=== PATIENT | female | born 1970 | race Caucasian/White ===

== ENCOUNTER → 2017-08-16 16:06 | Outpatient (CLI) | payer OTHER, SELFPAY ==
[2017-08-16 17:51] LABS: Hematocrit 40.7 % (37-47); Hemoglobin 13.7 g/dl (12.0-15.0); Mean Corp Hgb Conc 33.7 g/gl (32-36); Mean Corpuscular Hgb 33.2 pg (27.0-32.0); Mean Corpuscular Volume 98.5 fL (81-99); Mean Platelet Vol. 11.2 fl (6.2-12.0); Platelet Count 299 K/mm3 (150-450); RBC Distribution Width CV 12.3 % (11.6-14.6); RBC Distribution Width SD 43.7 fl (35.1-43.9); Red Blood Count 4.13 M/mm3 (4.2-5.4); White Blood Count 8.4 K/mm3 (4.4-11.0)
[2017-08-16 17:54] LABS: Scan Indicated on CBC? Y/N NO
[2017-08-16 17:59] LABS: Anion Gap 7 (5-15); BUN 24 mg/dL (7-18); BUN/Creat Ratio 28.8 RATIO (10-20); Calcium,Total 8.9 mg/dL (8.5-10.1); Chloride 106 mmol/L (98-107); Creatinine, Serum 0.83 mg/dL (0.55-1.02); EST Glomerular Filtration Rate 78 mL/min (>60); Est Glom Filt Rate - Afr Amer 95 mL/min (>60); Glucose 84 mg/dL (74-106); Potassium 3.8 mmol/L (3.5-5.1); Sodium Level 139 mmol/L (136-145)
== END ==
PROVIDERS: Visit Provider Physician Assistant
DX: Z01.810 Encounter for preprocedural cardiovascular examination (principal); Z01.818 Encounter for other preprocedural examination
CPT/HCPCS: 36415; 80048; 85027

== ENCOUNTER 2018-01-22 13:13 | Observation (INO) | payer OTHER, SELFPAY ==
[2018-01-22 13:15] VITALS: BP 139/91; PULSE 74; RESP 16; TEMP 36.6; O2SAT 98; BMI 30.9
--- NOTE | 2018-01-22 13:39 | CT_ITS ---
STUDY: CT ABDOMEN AND PELVIS WITH CONTRAST REASON FOR EXAM: Female, 47 years old. Bloody stool. Abdominal pain. Recent bilateral knee replacement. RADIATION DOSAGE (If Supplied By Facility): CTDIvol = ( 15.68 ) mGy, DLP = ( 1068.98 ) mGycm TECHNIQUE: Transaxial images were obtained from the dome of the diaphragm to the symphysis pubis with oral contrast. 100 ml of Isovue 300 contrast was administered. Sagittal and coronal images were reconstructed. Individualized dose optimization techniques were used for this CT. COMPARISON: None. FINDINGS: The visualized lung bases are unremarkable. The visualized portions of the heart are within normal limits. Normal liver. Normal gallbladder and extrahepatic biliary system. Normal spleen. Normal pancreas. Normal bilateral adrenal glands. Normal right kidney. Normal left kidney. There is a small hiatal hernia. Normal small intestine. Mild diffuse thickening of the colonic wall. Colitis should be ruled out. There are multiple colonic diverticula consistent with diverticulosis. The appendix is visualized and appears normal. Normal abdominal aorta. Normal inferior vena cava. Normal retroperitoneum. Normal urinary bladder. Small benign-appearing bilateral inguinal lymph nodes. There is a small umbilical hernia containing fat. Normal osseous structures. CT/Abdomen/Pelvis WITH Contrast IMPRESSION: Findings suggestive of a colitis worse in the left hemicolon. Electronically Signed: Luisito Colon MD at 15:55 EDT Tel [phone], Service support ,
[2018-01-22 14:01] LABS: Absolute Lymphocyte Count 3.28 X10^3/ul (0.83-4.51); Basophil# 0.02 X10^3/uL; Basophil% 0.2 % (0-1); Eosinophil# 0.09 X10^3/uL; Eosinophils% 1.1 % (0-5); Hemoglobin 13.7 g/dl (12.0-15.0); Lymphocyte # 3.28 X10^3/ul (4.0); Lymphocyte % 40.5 % (19-41); Mean Corp Hgb Conc 33.4 g/gl (32-36); Mean Corpuscular Hgb 31.4 pg (27.0-32.0); Mean Platelet Vol. 10.2 fl (6.2-12.0); Monocyte# 0.73 X10^3/uL; Neutrophil # 3.96 X10^3/uL (2.7-7.7); Neutrophil % 49.1 % (47-70); Platelet Count 259 K/mm3 (150-450); RBC Distribution Width CV 12.5 % (11.6-14.6); RBC Distribution Width SD 42.9 fl (35.1-43.9); Red Blood Count 4.36 M/mm3 (4.2-5.4); White Blood Count 8.1 K/mm3 (4.4-11.0)
[2018-01-22 14:02] LABS: POSITIVE COUNT NO; POSITIVE DIFFERENTIAL NO; POSITIVE MORPHOLOGY NO
[2018-01-22] MEDS: 0.9% Normal Saline 1,000 ML 1000 ML IV (14:05)
[2018-01-22 14:18] LABS: Anion Gap 7 (5-15); BUN 9 mg/dL (7-18); BUN/Creat Ratio 10.2 RATIO (10-20); Calcium,Total 8.4 mg/dL (8.5-10.1); Chloride 106 mmol/L (98-107); Creatinine, Serum 0.88 mg/dL (0.55-1.02); EST Glomerular Filtration Rate 73 mL/min (>60); Est Glom Filt Rate - Afr Amer 89 mL/min (>60); Estimated Creatinine Clearance 86.38 ml/min; Glucose 84 mg/dL (74-106); Potassium 3.3 mmol/L (3.5-5.1); Sodium Level 143 mmol/L (136-145)
[2018-01-22 14:25] LABS: Lactic Acid 0.7 mmol/L (0.4-2.0)
[2018-01-22 15:49] VITALS: BP 130/82; PULSE 72; RESP 16; O2SAT 100
--- NOTE | 2018-01-22 16:28 | ED.VISSUMM ---
- ER Visit Summary Date of Service: 01/22/18 Chief Complaint: Diarrhea and rectal bleeding [] History of Present Illness: The patient is a 47 F [presents the emergency department with complaint of diarrhea that started 5 days ago. Patient states that the diarrhea subsequently turned bloody after 3 days and now was passing bloody mucus from her rectum. Patient's had intermittent abdominal pain and cramping. Patient denies recent travel or recent antibiotic usage. 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 Patient denies any fevers. There is no family history of ulcerative colitis or Crohn's disease. She denies any weight loss or night sweats.] Physical Examination: [HEENT-PERRLA, EOMI. Cranial nerves II through XII grossly intact. TMs clear. Mucous membranes moist. No adenopathy. Cardiovascular-regular rate and rhythm without murmur or ectopy Lungs-clear to auscultation, chest wall stable without crepitus or subcu emphysema Abdomen-normoactive bowel sounds, soft. Patient has tenderness over left lower quadrant with some guarding. There is no rebound, rigidity or perineal signs. Extremities-intact ?4, normal range of motion, normal pulses, atraumatic] Test Results: [CBC with differential obtain showed a white blood cell count of 8.1, hemoglobin 13.7, hematocrit 41, platelets 259. Chemistries unremarkable. Lactate was normal at 0.7. CT scan of the abdomen and pelvis showed findings consistent with colitis of the left side of the colon.] Emergency Department Course and Treatment: [I discussed results with patient and initially she did not want to be admitted to the hospital although that was my recommendation. I discussed case with Dr. Santi Tang who agreed to see the patient if she would agree to admission given the rectal bleeding and the abdominal pain he felt patient should be admitted and after expressing this to the patient she agreed to be admitted for further workup and evaluation of her diarrhea and rectal bleeding. Patient was unable to give a stool sample in the emergency department.] Treatment Plan: [Admit] Disposition: [Admit] Impression: [Colitis Rectal bleeding Diarrhea This note was generated with [employer] software. It may contain incorrect words, spelling, and punctuation that were not noted in review of the chart prior to signing ED Disposition - Plan for ED Patient: Chief Complaint: Lower Extremity Injury Referrals: Care Physician,No Primary [Primary Care Provider] -
[2018-01-22 16:43] VITALS: BP 141/80; PULSE 68; RESP 16; O2SAT 100
--- NOTE | 2018-01-22 16:48 | NURSING ---
MED SURG ACUTE COLITIS OF THE LEFT HEMICOLON STEPH
[2018-01-22 17:19] VITALS: BP 148/90; PULSE 63; RESP 16; TEMP 36.9; O2SAT 100; BMI 31.7
[2018-01-22 17:27] VITALS: BMI 31.7
[2018-01-22 17:45] LABS: AST(SGOT) 24 U/L (15-37); Alanine Aminotransfer ALT/SGPT 32 U/L (13-56); Albumin, Serum 2.8 g/dL (3.2-5.0); Alkaline Phosphatase 79 U/L (45-117); Bilirubin, Direct 0.08 mg/dL (0.00-0.30); Globulin 4.1 g/dL (2.2-4.2); Lipase 62 U/L (73-393); Protein, Total 6.9 g/dL (6.4-8.2)
--- NOTE | 2018-01-22 17:50 | PCM.HP.STD ---
<Paulie Hernandez - Last Filed: 01/22/18 17:50> Problem List (1) Colitis Status: Acute (2) Hypothyroidism Status: Chronic (3) Osteoarthritis Status: Chronic History of Present Illness Date of Admission: 01/22/18 Chief Complaint: diarrhea The patient is a 47 year old F with a hx of hyopthyroidism and osteoarthritis s/p BL knee repair this year who presents to the ER with intractable diarrhea. This began 5 days ago. She has had frequent loos stools with diffuse mild abdominal pain sometimes more than 10 per day. The first day she did throw up but the nausea has resolved. Three days ago she developed mucousy bright red blood in her stools. She has no hx of infectious colitis or C diff. 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 She has no fevers or chills. She has no difficulty eating. She currently has no belly pain. She is resting comfortably in bed. She has not had a BM since admission. [] Past Medical History Past Medical History (Chronic Problems): Chronic Problems Hypothyroidism (Chronic) Osteoarthritis (Chronic) Allergies No Known Allergies Allergy (Verified 01/22/18 17:19) Home Medications: Ambulatory Orders Medication Instructions Recorded Cetirizine HCl [Zyrtec] 10 mg PO DAILY 01/22/18 Levothyroxine [Synthroid] 137 mcg PO DAILY 01/22/18 Surgical History: total knee arthroplasty Psychiatric History: No pertinent psych hx DIRECTOR REGULATORY COMPLIANCE History: No pertinent DIRECTOR REGULATORY COMPLIANCE history Lives: Roommate Smoking Status: Never smoker Tobacco Use: Non-smoker Alcohol: None Drugs: None - *Family History Maternal History Items: No pertinent history Paternal History Items: No pertinent history Review of Systems Constitutional: Denies: Chills, Fever, Weight Change HEENT: Denies: Head Aches, Sinus Congestion, Sinus Drainage Cardiovascular: Denies: Chest Pain, Palpitations Respiratory: Denies: Cough, Shortness of breath at rest, Sputum production Gastrointestinal: Reports: Abdominal Pain, Diarrhea, Hematochezia. Denies: Nausea, Vomiting Genitourinary: Denies: Dysuria Musculoskeletal: Denies: Joint Pain, Joint Tenderness Skin: Denies: Rash, Wounds Neurological: Denies: Numbness, Tingling, Focal weakness Psychiatric: Denies: Anxiety, Depression, Homicidal Ideations, Suicidal Ideations Hematologic/ Lymphatic: Denies: Easy Bruising, Easy Bleeding VTE Information - Inpt Only VTE Present on Admission: No VTE Mechan Device Prophylaxis: None VTE Pharm Prophylaxis ordered?: No Reason prophylaxis not ordered:: Medical Contraindication Patient Problems: Active and Suspected Problems Colitis (Acute) - Physical Exam General: Alert, Oriented x3, Cooperative HEENT: Atraumatic, PERRLA, EOMI, Normocephalic Neck: Supple, No JVD, Negative Carotid Bruits Lungs: Clear to auscultation, Normal air movement Cardiovascular: Regular rate, No murmurs Abdomen: Bowel Sounds Present, Soft, Non Tender Extremities: No edema, Capillary Refill Less than 3 Seconds Skin: No rashes, No breakdown Musculoskeletal: No Tenderness to Palpation of Joints or Extremities Neurological: Cranial nerves II-XII grossly intact Psych/Mental Status: Normal Affect, Appropriate, Alert and oriented to time, place, person, mood and affect Vital Signs Temp Pulse Resp BP Pulse Ox 98.4 F 63 16 148/90 H 100 01/22/18 17:19 01/22/18 17:19 01/22/18 17:19 01/22/18 17:19 01/22/18 17:19 Oxygen Delivery Method Room Air Weight: 215 lb Body Mass Index (BMI) 31.7 Assessment/Plan All Active Problems Colitis (Acute) 1. Colitis - with bloody mucousy diarrhea. Hgb normal. CT with Left hemicolon colitis. Belly currently is benign on exam. suspected viral gastroenteritis. 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 Continue cipro flagyl. Check ova / parasites. Enteric panel. Replete fluids. Lipase neg. 2. hypokalemia 2/2 above - replete. 3. Hypothyroid continue synthroid. 4. Osteoarthritis - BL knee repair earlier this year DVT ppx: SCDs This patient was seen by Paulie Hernandez PA-C under the supervision of Doctor Renetta. <Susie Jackson - Last Filed: 01/22/18 18:09> History of Present Illness The patient is a 47 year old F [] Past Medical History Allergies No Known Allergies Allergy (Verified 01/22/18 17:19) - Physical Exam Vital Signs Temp Pulse Resp BP Pulse Ox 98.4 F 63 16 148/90 H 100 01/22/18 17:19 01/22/18 17:19 01/22/18 17:19 01/22/18 17:19 01/22/18 17:19 Oxygen Delivery Method Room Air Weight: 215 lb Body Mass Index (BMI) 31.7 Assessment/Plan Hospitalist note: I am seeing this patient in conjunction with Paulie Hernandez. I independently seen and examined the patient. History and physical, laboratory data and imaging studies reviewed and I agree with the above treatment plan. Patient was admitted for diarrhea, bloody stool and abdominal discomfort/pain, found to have acute colitis of the left hemicolon which is consistent with probably infectious colitis. Her vital signs are stable. Her routine blood work is remarkable for mild hypokalemia, otherwise normal. - Physical Exam General: Alert, Oriented x3, Cooperative, No apparent distress. HEENT: Atraumatic, PERRLA, EOMI. Neck: Supple, No JVD, Negative Carotid Bruits, Trachea Midline, Thyroid Normal. Lungs: Clear to auscultation, Normal air movement, No rhonchi, No wheeze, No rales. Cardiovascular: Regular rate, Regular Rhythm, Normal S1, Normal S2, PMI Normal. Abdomen: Bowel Sounds Present, Soft, Non Tender, Non-Distended, No Hepato-splenomegaly. Extremities: No clubbing, No cyanosis, No edema Skin: No rashes, No breakdown Neurological: Neuro grossly intact Vital Signs are stable. Assessment and plan: #1 acute colitis of the left hemicolon: Likely infectious colitis. CT scan abdomen and pelvis reviewed. Patient reported diarrhea with loose stool. Denies fever chills. Vital signs are stable. Routine blood work, #4 hypokalemia, otherwise normal. No fever, no leukocytosis. Plan: Admit to MedSur floor, keep on clear liquids, IV fluids, IV antibiotics, IV morphine as needed for pain, IV antiemetics, stool for C. difficile, stool for enteric pathogens, stool for omental signs. #2 chronic medical problems: Continue current medications as above. This note was generated with [employer] software. It may contain incorrect words, spelling, and punctuation that were not noted in checking the note before signing. Code Visit Inpatient E&M: 67709 Init Hosp L2
--- NOTE | 2018-01-22 17:56 | HP.PCM_ITS ---
<Paulie Hernandez - Last Filed: 01/22/18 17:50> Problem List (1) Colitis Status: Acute (2) Hypothyroidism Status: Chronic (3) Osteoarthritis Status: Chronic History of Present Illness Date of Admission: 01/22/18 Chief Complaint: diarrhea The patient is a 47 year old F with a hx of hyopthyroidism and osteoarthritis s/ p BL knee repair this year who presents to the ER with intractable diarrhea. This began 5 days ago. She has had frequent loos stools with diffuse mild abdominal pain sometimes more than 10 per day. The first day she did throw up but the nausea has resolved. Three days ago she developed mucousy bright red blood in her stools. She has no hx of infectious colitis or C diff. 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 She has no fevers or chills. She has no difficulty eating. She currently has no belly pain. She is resting comfortably in bed. She has not had a BM since admission. 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 Denies: Nausea, Vomiting Genitourinary: Denies: Dysuria Musculoskeletal: Denies: Joint Pain, Joint Tenderness Skin: Denies: Rash, Wounds Neurological: Denies: Numbness, Tingling, Focal weakness Psychiatric: Denies: Anxiety, Depression, Homicidal Ideations, Suicidal Ideations Hematologic/ Lymphatic: Denies: Easy Bruising, Easy Bleeding VTE Information - Inpt Only VTE Present on Admission: No VTE Mechan Device Prophylaxis: None VTE Pharm Prophylaxis ordered?: No Reason prophylaxis not ordered:: Medical Contraindication Patient Problems: Active and Suspected Problems Colitis (Acute) - Physical Exam General: Alert, Oriented x3, Cooperative HEENT: Atraumatic, PERRLA, EOMI, Normocephalic Neck: Supple, No JVD, Negative Carotid Bruits Lungs: Clear to auscultation, Normal air movement Cardiovascular: Regular rate, No murmurs Abdomen: Bowel Sounds Present, Soft, Non Tender Extremities: No edema, Capillary Refill Less than 3 Seconds Skin: No rashes, No breakdown Musculoskeletal: No Tenderness to Palpation of Joints or Extremities Neurological: Cranial nerves II-XII grossly intact Psych/Mental Status: Normal Affect, Appropriate, Alert and oriented to time, place, person, mood and affect Vital Signs Temp Pulse Resp BP Pulse Ox 98.4 F 63 16 148/90 H 100 01/22/18 17:19 01/22/18 17:19 01/22/18 17:19 01/22/18 17:19 01/22/18 17:19 Oxygen Delivery Method Room Air Weight: 215 lb Body Mass Index (BMI) 31.7 Assessment/Plan All Active Problems Colitis (Acute) 1. Colitis - with bloody mucousy diarrhea. Hgb normal. CT with Left hemicolon colitis. Belly currently is benign on exam. suspected viral gastroenteritis. 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 Continue cipro flagyl. Check ova / parasites. Enteric panel. Replete fluids. Lipase neg. 2. hypokalemia 2/2 above - replete. 3. Hypothyroid continue synthroid. 4. Osteoarthritis - BL knee repair earlier this year DVT ppx: SCDs This patient was seen by Paulie Hernandez PA-C under the supervision of Doctor Renetta. <Susie Jackson - Last Filed: 01/22/18 18:09> History of Present Illness The patient is a 47 year old F [] Past Medical History Allergies No Known Allergies Allergy (Verified 01/22/18 17:19) - Physical Exam Vital Signs Temp Pulse Resp BP Pulse Ox 98.4 F 63 16 148/90 H 100 01/22/18 17:19 01/22/18 17:19 01/22/18 17:19 01/22/18 17:19 01/22/18 17:19 Oxygen Delivery Method Room Air Weight: 215 lb Body Mass Index (BMI) 31.7 Assessment/Plan Hospitalist note: I am seeing this patient in conjunction with Paulie Hernandez. I independently seen and examined the patient. History and physical, laboratory data and imaging studies reviewed and I agree with the above treatment plan. Patient was admitted for diarrhea, bloody stool and abdominal discomfort/pain, found to have acute colitis of the left hemicolon which is consistent with probably infectious colitis. Her vital signs are stable. Her routine blood work is remarkable for mild hypokalemia, otherwise normal. - Physical Exam General: Alert, Oriented x3, Cooperative, No apparent distress. HEENT: Atraumatic, PERRLA, EOMI. Neck: Supple, No JVD, Negative Carotid Bruits, Trachea Midline, Thyroid Normal. Lungs: Clear to auscultation, Normal air movement, No rhonchi, No wheeze, No rales. Cardiovascular: Regular rate, Regular Rhythm, Normal S1, Normal S2, PMI Normal. Abdomen: Bowel Sounds Present, Soft, Non Tender, Non-Distended, No Hepato- splenomegaly. Extremities: No clubbing, No cyanosis, No edema Skin: No rashes, No breakdown Neurological: Neuro grossly intact Vital Signs are stable. Assessment and plan: #1 acute colitis of the left hemicolon: Likely infectious colitis. CT scan abdomen and pelvis reviewed. Patient reported diarrhea with loose stool. Denies fever chills. Vital signs are stable. Routine blood work, #4 hypokalemia, otherwise normal. No fever, no leukocytosis. Plan: Admit to MedSur floor, keep on clear liquids, IV fluids, IV antibiotics, IV morphine as needed for pain, IV antiemetics, stool for C. difficile, stool for enteric pathogens, stool for omental signs. #2 chronic medical problems: Continue current medications as above. This note was generated with [employer] software. It may contain incorrect words, spelling, and punctuation that were not noted in checking the note before signing. Code Visit Inpatient E&M: 36329 Init Hosp L2
[2018-01-22 21:00] VITALS: BP 134/80; PULSE 69; RESP 16; TEMP 36.6; O2SAT 99
[2018-01-22] MEDS: Ciprofloxacin 200 MG/100 ML BAG 100 MG IV (21:03)
[2018-01-23 03:00] VITALS: BP 142/80; PULSE 79; RESP 18; TEMP 36.4; O2SAT 96
[2018-01-23] MEDS: Levothyroxine 137 MCG Tablet PO (06:05)
[2018-01-23 06:41] LABS: Absolute Lymphocyte Count 2.85 X10^3/ul (0.83-4.51); Absolute Neutrophil Count 3.1 X10^3/uL (2.0-7.7); Basophil# 0.03 X10^3/uL; Basophil% 0.4 % (0-1); Eosinophil# 0.15 X10^3/uL; Eosinophils% 2.2 % (0-5); Hematocrit 37.6 % (37-47); Hemoglobin 13.1 g/dl (12.0-15.0); Lymphocyte # 2.85 X10^3/ul (4.0); Lymphocyte % 41.1 % (19-41); Mean Corp Hgb Conc 34.8 g/gl (32-36); Mean Corpuscular Hgb 32.5 pg (27.0-32.0); Mean Corpuscular Volume 93.3 fL (81-99); Mean Platelet Vol. 10.4 fl (6.2-12.0); Monocyte# 0.75 X10^3/uL; Monocyte% 10.8 % (0-10); Neutrophil # 3.14 X10^3/uL (2.7-7.7); Neutrophil % 45.4 % (47-70); Platelet Count 255 K/mm3 (150-450); RBC Distribution Width CV 12.3 % (11.6-14.6); RBC Distribution Width SD 41.2 fl (35.1-43.9); Red Blood Count 4.03 M/mm3 (4.2-5.4); White Blood Count 6.9 K/mm3 (4.4-11.0)
[2018-01-23 06:42] LABS: POSITIVE COUNT NO; POSITIVE DIFFERENTIAL NO; POSITIVE MORPHOLOGY NO
[2018-01-23 06:59] LABS: Anion Gap 9 (5-15); BUN 5 mg/dL (7-18); Chloride 110 mmol/L (98-107); Creatinine, Serum 0.72 mg/dL (0.55-1.02); EST Glomerular Filtration Rate 93 mL/min (>60); Est Glom Filt Rate - Afr Amer 113 mL/min (>60); Estimated Creatinine Clearance 102.03 ml/min; Glucose 84 mg/dL (74-106); Potassium 3.5 mmol/L (3.5-5.1); Sodium Level 144 mmol/L (136-145)
[2018-01-23] MEDS: Acetaminophen 325 MG Tablet 650 MG PO (07:19)
[2018-01-23 10:08] VITALS: BP 123/81; PULSE 58; RESP 18; TEMP 36.6; O2SAT 98
[2018-01-23] MEDS: Ciprofloxacin 200 MG/100 ML BAG 100 MG IV (10:09)
[2018-01-23] MEDS: Loratadine 10 MG Tablet PO (10:14)
--- NOTE | 2018-01-23 11:36 | DCINST_ITS ---
- Discharge Diagnoses Current Active Problems: Current Active and Chronic Problems Colitis (Acute) Hypothyroidism (Chronic) Osteoarthritis (Chronic) You will use the following diet at home:: No restrictions Your food should be the consistency of: Regular Your liquids should be the consistency of: Regular/Thin Discharge Activity: Return to Normal Activity Allergies/Adverse Reactions: Allergies No Known Allergies Allergy (Verified 01/22/18 17:19) Medications to take at Discharge Cetirizine HCl [Zyrtec] 10 mg PO DAILY 01/22/18 Levothyroxine [Synthroid] 137 mcg PO DAILY 01/22/18 Ciprofloxacin [Cipro] 500 mg PO BID #10 tab 01/23/18 Metronidazole [Flagyl] 500 mg PO TID #15 tab 01/23/18 The following prescriptions were given: Ciprofloxacin [Cipro] 500 mg PO BID #10 tab Metronidazole [Flagyl] 500 mg PO TID #15 tab Primary Care Physician: Care Physician,No Primary [Primary Care Provider] - Please follow up with your Primary Care Physician in: 1-2 weeks Test Results: Test results from this visit will be discussed in further detail at your follow- up appointment, if applicable. Proposed Discharge Date: 01/23/18
--- NOTE | 2018-01-23 13:23 | DS.PCM_ITS ---
<Paulie Hernandez - Last Filed: 01/23/18 13:18> Discharge Date and Diagnosis Date of Admission: 01/22/18 Date of Discharge: 01/23/18 - Primary Discharge Diagnosis Active and Suspected Problems Colitis (Acute) - suspect viral gastroenteritis BRBPR 2/2 above Hypokalemia 2/2 diarrhea Hypothyroidism - Secondary Discharge Diagnosis Chronic Problems Hypothyroidism (Chronic) Osteoarthritis (Chronic) Hospital Course and Treatment Imaging Results: CT/Abdomen/Pelvis WITH Contrast IMPRESSION: Findings suggestive of a colitis worse in the left hemicolon. Operations: None Procedures: None Summary of Care Provided: Physical exam on day of discharge: General: Resting comfortably NAD Psych: A/Ox3 normal affect HEENT: PEARRLA AT NC Neck: Supple NT CV: RRR no m/t/r/g/h Resp: CTA Abd: [id number] Soft NT no guarding or rigidity Ext: DP2+= no edema Skin: W/D normal turgor Lymph/Heme: No active bleeding or adenopathy Neuro: CN2-12 intact Hospital course: The patient is a 47 year old F with a hx of hypothyroidism who presented to the ER with 5 days of diarrhea with boody mucus the last three days. She had tried taking cipro and flagyl x1 day with no relief. She was having at least 10 rounds of diarrhea per day. Initially she had some vomiting, but did not have any further nausea. In the ER CT showed colitis. Hemoglobin was normal, potassium was low. She was admitted to the medical surgical floor on IV Cipro and Flagyl and IV fluids with potassium replacement. She did well overnight. Her diet was advanced to full and she had no nausea or vomiting. Her stools decreased in frequency and she had no further blood noted. She was transitioned to oral Flagyl and Cipro for 5 more days and discharged home in stable condition. Enteric panel was negative, C. difficile was negative, ova and parasites test is pending will not be available for 5-7 days. She will need to follow-up with her PCP in 1-2 weeks. This patient was seen by Paulie Hernandez PA-C under the supervision of Doctor Jackson. [] Discharge Diet: No Restrictions Discharge Activity: Return to Normal Activity Home Medications: Medications to take at Discharge Cetirizine HCl [Zyrtec] 10 mg PO DAILY 01/22/18 Levothyroxine [Synthroid] 137 mcg PO DAILY 01/22/18 Ciprofloxacin [Cipro] 500 mg PO BID #10 tab 01/23/18 Metronidazole [Flagyl] 500 mg PO TID #15 tab 01/23/18 Following Prescrptions Were Given to Patient: Ciprofloxacin [Cipro] 500 mg PO BID #10 tab Metronidazole [Flagyl] 500 mg PO TID #15 tab Primary Care Physician: Care Physician,No Primary [Primary Care Provider] - Please follow up with your Primary Care Physician in: 1-2 weeks Disposition: Home Minutes spent on discharge:: 35 Patient Condition:: Stable Medical Necessity - Tobacco Use Smoking Status: Never smoker Tobacco Use: Non-smoker Meaningful Use Info Meaningful Use Diagnoses (Choose all that apply): None applicable <[email or web address] Christina - Last Filed: 01/23/18 14:13> Discharge Date and Diagnosis - Primary Discharge Diagnosis Acute colitis of the left hemicolon, probably viral in etiology. - Secondary Discharge Diagnosis Chronic Problems Hypothyroidism (Chronic) Osteoarthritis (Chronic) Hospital Course and Treatment Summary of Care Provided: Hospitalist note: Discharge summary above reviewed and I agree with above discharge and treatment plan. Patient was admitted for diarrhea, bloody stool and abdominal pain, found to have acute colitis of the left hemicolon on CT scan abdomen and pelvis. Her routine blood work was unremarkable except for mild hypokalemia, no leukocytosis. She was treated with IV fluids, IV antibiotics, IV pain medications and IV antiemetics. On the day of discharge, patient symptoms improved, has no more abdominal pain, no more bloody stool. She remains afebrile. Repeat blood work again today was unremarkable. Stool for C. difficile was negative. Stool for enteric pathogens were negative. Lactic acid was normal. This acute colitis attributed to infectious colitis likely viral in etiology. Patient discharged home in a stable medical condition, discharged on ciprofloxacin and Flagyl for 7 days of treatment, recommended from PCP in 1-2 weeks. - Physical Exam General: Alert, Oriented x3, Cooperative, No apparent distress. HEENT: Atraumatic, PERRLA, EOMI. Neck: Supple, No JVD, Negative Carotid Bruits, Trachea Midline, Thyroid Normal. Lungs: Clear to auscultation, Normal air movement, No rhonchi, No wheeze, No rales. Cardiovascular: Regular rate, Regular Rhythm, Normal S1, Normal S2, PMI Normal. Abdomen: Bowel Sounds Present, Soft, Non Tender, Non-Distended, No Hepato- splenomegaly. Extremities: No clubbing, No cyanosis, No edema Skin: No rashes, No breakdown Neurological: Neuro grossly intact Vital Signs are stable. This note was generated with [employer] dictation software. It may contain incorrect words, spelling, and punctuation that were not noted in checking the note before signing. Minutes spent on discharge:: 25 Patient Condition:: Stable Meaningful Use Info Meaningful Use Diagnoses (Choose all that apply): None applicable Code Visit OBSV E&M: 53662 Observation care discharge
== END 2018-01-23 13:28 | disposition home or self-care (01) ==
LOC: ED 14:06 → MS3 01-23 00:31
PROVIDERS: Admitting Provider Hospitalist; Emergency Provider Emergency Medicine; Visit Provider Hospitalist
DX: K52.9 Noninfective gastroenteritis and colitis, unspecified (principal); E03.9 Hypothyroidism, unspecified; E87.6 Hypokalemia; K62.5 Hemorrhage of anus and rectum; M19.90 Unspecified osteoarthritis, unspecified site; Z79.899 Other long term (current) drug therapy
CPT/HCPCS: 36415; 74177; 80048; 80076; 83605; 83690; 85025; 87177; 87209; 87493; 87506; 96361; 96365; 96366; 96367; 99218; 99283; J7030; Q9967; G0378; J0744

== ENCOUNTER → 2018-05-28 16:13 | Outpatient (CLI) | payer OTHER, SELFPAY ==
[2018-05-28 17:46] LABS: Absolute Lymphocyte Count 3.72 X10^3/ul (0.83-4.51); Absolute Neutrophil Count 5.7 X10^3/uL (2.0-7.7); Basophil# 0.02 X10^3/uL; Basophil% 0.2 % (0-1); Eosinophil# 0.08 X10^3/uL; Eosinophils% 0.8 % (0-5); Hematocrit 41.2 % (37-47); Lymphocyte # 3.72 X10^3/ul (4.0); Lymphocyte % 35.9 % (19-41); Mean Corpuscular Hgb 32.9 pg (27.0-32.0); Mean Corpuscular Volume 96.7 fL (81-99); Mean Platelet Vol. 11.2 fl (6.2-12.0); Monocyte# 0.83 X10^3/uL; Neutrophil % 54.9 % (47-70); Platelet Count 292 K/mm3 (150-450); RBC Distribution Width CV 12.2 % (11.6-14.6); RBC Distribution Width SD 41.9 fl (35.1-43.9); Red Blood Count 4.26 M/mm3 (4.2-5.4); White Blood Count 10.4 K/mm3 (4.4-11.0)
[2018-05-28 17:53] LABS: POSITIVE COUNT NO; POSITIVE DIFFERENTIAL NO; POSITIVE MORPHOLOGY NO
[2018-05-28 18:15] LABS: Erythrocyte Sedimentation Rate 10 mm/hr (0-20)
== END ==
PROVIDERS: Family Provider Nurse Practitioner; PCP Nurse Practitioner; Referring Provider Physician Assistant; Visit Provider Physician Assistant
DX: Z96.651 Presence of right artificial knee joint (principal)
CPT/HCPCS: 36415; 85025; 85652; 86140

== ENCOUNTER → 2018-05-30 21:29 | Outpatient (CLI) | payer OTHER, SELFPAY ==
[2018-05-30 22:00] LABS: Thyroid Stim Hormone (TSH) 3.71 uIU/mL (0.358-3.74)
== END ==
PROVIDERS: Family Provider Nurse Practitioner; PCP Nurse Practitioner; Referring Provider Nurse Practitioner; Visit Provider Nurse Practitioner
DX: E03.9 Hypothyroidism, unspecified (principal)
CPT/HCPCS: 84443

== ENCOUNTER → 2018-07-11 21:14 | Outpatient (CLI) | payer OTHER, SELFPAY ==
[2018-07-11 21:51] LABS: Thyroid Stim Hormone (TSH) 3.89 uIU/mL (0.358-3.74)
--- OUTSIDE RECORDS SUMMARY | 2018-09-15 12:55 | XMS RPT_ITS ---
:1970 Author Organization OHIP Support Name Relationship Address Phone [facility] Unavailable [address] + [place] [address] FLANNERY, ANNIA Unavailable [address] + [place] [address] [facility] Unavailable [address] + [place] [address] FLANNERY, ANNIA Unavailable [address] + [place] [address] [facility] Unavailable [address] + [place] [address] FLANNERY, ANNIA Unavailable [address] + [facility] [place] [address] [facility] Unavailable [address] + [place] [address] FLANNERY, ANNIA Unavailable [address] + [place] [address] [facility] Unavailable [address] + [place] [address] FLANNERY, ANNIA Unavailable [address] + [place] [address] [facility] Unavailable [address] + [place] [address] FLANNERY, ANNIA Unavailable [address] + [facility] [place] [address] [facility] Unavailable [address] + [place] [address] FLANNERY, ANNIA Unavailable [address] + [facility] [place] [address] Care Team Providers Name Role Phone Allison Kulkarni BRICK STACKER-C Attending Unavailable Allison Kulkarni BRICK STACKER-C Primary Care Unavailable Allison Kulkarni BRICK STACKER-C Referring Unavailable Lopez Toscano Attending Unavailable Lopez Toscano Referring Unavailable Primay Care Physicia, No Primary Care Unavailable Primay Care Physicia, No Primary Care Unavailable Ashelfah, Ghasem Admitting Unavailable Ashelfah, Ghasem Attending Unavailable Ashelfah, Ghasem Admitting Unavailable Primay Care Physicia, No Primary Care Unavailable Ashelfah, Ghasem Consulting Unavailable Ashelfah, Ghasem Attending Unavailable Ashelfah, Ghasem Admitting Unavailable Primay Care Physicia, No Primary Care Unavailable Ashelfah, Ghasem Consulting Unavailable Ashelfah, Ghasem Attending Unavailable Lopez Toscano Attending Unavailable Lopez Toscano Referring Unavailable Allison Kulkarni BRICK STACKER-C Primary Care Unavailable Allison Kulkarni BRICK STACKER-C Attending Unavailable Kulkarni, Allison BRICK STACKER-C Primary Care Unavailable Allison Kulkarni BRICK STACKER-C Referring Unavailable COLAANTONIO Attending Unavailable COLAVIRGINIA Attending Unavailable [facility] Referring Unavailable GHOUBRIAL, ALEISHA Primary Care Unavailable PROBLEMS PROBLEMS DATE TYPE CONDITION / CODE ATTENDING STATUS SOURCE 07/12/2018 Unknown E03.9 - Kulkarni, Active [place] Hypothyroidism, Allison BRICK STACKER-C Community unspecified / Hospital E03.9(ICD-10) Repository 03/27/2018 Active Encounter for ANTONIO FLOWERS Active [place] gynecological [facility] Other examination [place] (general) (routine) Repository without abnormal findings / Z01.419(ICD-10) 01/17/2017 Active Encounter for COLANTONIO Sharpe Active [place] initial prescription [facility] Other of vaginal ring [place] hormonal Repository contraceptive / Z30.015(ICD-10) 01/17/2017 Active Encounter for COLANTONIO Sharpe Active [place] screening mammogram [facility] Other for malignant [place] neoplasm of breast / Repository Z12.31(ICD-10) 01/17/2017 Active Encounter for COLANTONIO Sharpe Active [place] screening for [facility] Other malignant neoplasm [place] of cervix / Repository Z12.4(ICD-10) 03/27/2018 Admitting Unknown / VIRGINIA FLOWERS Active [place] [facility] diagnosis [facility](Unknown[facility] Repository 01/30/2018 Unknown K62.5 - Hemorrhage Ashelfah, Active [place] of anus and rectum / Ghasem Community K62.5(ICD-10) Hospital Repository 08/16/2017 Unknown Z01.818 - Encounter Lopez Toscano Active [place] for other [facility] preprocedural Hospital examination / Repository Z01.818(ICD-10) 08/16/2017 Unknown Z01.810 - Encounter Lopez Toscano Active [place] for preprocedural [facility] cardiovascular [facility] examination / Repository Z01.810(ICD-10) PROCEDURES PROCEDURES No Procedure Records FoundRESULTS RESULTS OFFICE VISIT Observed: 07/11/2018 Status: F Source: [place] 8:43 PM [facility] REPOSITORY [facility] [address] [place] [address] OFFICE VISIT Date of Service: 07/11/18 MR#: [id number] Acct: [id number] Name: HENRIQUE TURPIN Wale Rep #: [id number] : 1970 Provider: CYDNEY Kulkarni Age/Sex: 47/F Location: [facility] Status: Signed Intake Intake Visit Reasons: TSH Chief Complaint: Colitis Allergies No Known Allergies Allergy (Verified 01/22/18 17:19) Medications Cetirizine HCl [Zyrtec] 10 mg PO DAILY 01/22/18 [History Confirmed 01/22/18] Ciprofloxacin [Cipro] 500 mg PO BID #10 tab 01/23/18 [Rx] Metronidazole [Flagyl] 500 mg PO TID #15 tab 01/23/18 [Rx] levothyroxine 150 mcg tablet 150 mcg PO DAILY #30 tab 06/01/18 [Rx] Assessment AND Plan Orders Orders: 07/11/182042 <Electronically signed by Allison LÓPEZ> Date Allison LÓPEZ CC: THYROID STIM HORMONE Collected: 07/11/2018 Status: F Source: [place] (TSH) 4:15 PM [facility] REPOSITORY TYPE CODE TESTS RESULT OUT OF RANGE REFERENCE UNITS LAB L501.9520 0.358-3.74 uIU/mL High TSH 3.89 Performed By: #### L501.9520 #### [facility] [place] [place], [address] OFFICE VISIT Observed: 05/30/2018 Status: F Source: [place] 8:46 PM [facility] REPOSITORY After Hours [facility] Medicine [address] [place] [address] OFFICE VISIT Date of Service: 05/30/18 MR#: [id number] Acct: [id number] Name: HENRIQUE TURPIN Wale Rep #: [id number] : 1970 Provider: CYDNEY Kulkarni Age/Sex: 47/F Location: [facility] Status: Signed Intake Intake Visit Reasons: TSH Allergies No Known Allergies Allergy (Verified 01/22/18 17:19) Medications Cetirizine HCl [Zyrtec] 10 mg PO DAILY 01/22/18 [History Confirmed 01/22/18] Levothyroxine [Synthroid] 137 mcg PO DAILY 01/22/18 [History Confirmed 01/22/18] Ciprofloxacin [Cipro] 500 mg PO BID #10 tab 01/23/18 [Rx] Metronidazole [Flagyl] 500 mg PO TID #15 tab 01/23/18 [Rx] PFSH Social History Smoking Status: Never smoker HPI HPI (General) HPI HPI: HENRIQUE TURPIN, is a 47 F who presents to the office today for Assessment AND Plan Orders Orders: Coding Level of Care Code No Charge 05/30/182045 <Electronically signed by Allison LÓPEZ> Date Allison LÓPEZ CC: OFFICE VISIT Observed: 05/30/2018 Status: F Source: [place] 8:44 PM [facility] REPOSITORY After Hours [facility] [address] [place] [address] OFFICE VISIT Date of Service: 05/30/18 MR#: [id number] Acct: [id number] Name: AMANDA TURPINJESIKA Echevarria Rep #: [id number] : 1970 Provider: CYDNEY Kulkarni Age/Sex: 47/F Location: F Status: Signed Intake Intake Visit Reasons: TSH Allergies No Known Allergies Allergy (Verified 01/22/18 17:19) Medications Cetirizine HCl [Zyrtec] 10 mg PO DAILY 01/22/18 [History Confirmed 01/22/18] Levothyroxine [Synthroid] 137 mcg PO DAILY 01/22/18 [History Confirmed 01/22/18] Ciprofloxacin [Cipro] 500 mg PO BID #10 tab 01/23/18 [Rx] Metronidazole [Flagyl] 500 mg PO TID #15 tab 01/23/18 [Rx] PFSH Social History Smoking Status: Never smoker HPI HPI (General) HPI HPI: HENRIQUE TURPIN, is a 47 F who presents to the office today for Coding Level of Care Code No Charge 05/30/182043 <Electronically signed by Allison LÓPEZ> Date Allison LÓPEZ CC: THYROID STIM HORMONE Collected: 05/30/2018 Status: F Source: [place] (TSH) 4:10 PM [facility] REPOSITORY TYPE CODE TESTS RESULT OUT OF RANGE REFERENCE UNITS LAB L501.9520 0.358-3.74 uIU/mL Normal TSH 3.71 Performed By: #### L501.9520 #### [facility] [place], [address] CBC W/DIFF, AUTOMATED Collected: 05/28/2018 Status: F Source: [place] 4:22 PM [facility] REPOSITORY TYPE CODE TESTS RESULT OUT OF RANGE REFERENCE UNITS LAB L100.1000 4.4-11.0 K/mm3 Normal WBC 10.4 LAB L100.1200 4.2-5.4 M/mm3 Normal RBC 4.26 LAB L100.1300 12.0-15.0 g/dl Normal HGB 14.0 LAB L100.1400 37-47 % Normal HCT 41.2 LAB L100.1500 81-99 fL Normal MCV 96.7 LAB L100.1600 27.0-32.0 pg High MCH 32.9 LAB L100.1700 32-36 g/gl Normal MCHC 34.0 LAB L100.1810 11.6-14.6 % Normal RDW CV 12.2 LAB L100.1820 35.1-43.9 fl Normal RDW SD 41.9 LAB L100.1900 150-450 K/mm3 Normal PLT 292 LAB L100.2000 6.2-12.0 fl Normal MPV 11.2 LAB L100.2100 47-70 % Normal NEUT% 54.9 LAB L100.2200 19-41 % Normal LY% 35.9 LAB L100.2300 0-10 % Normal MONO% 8.0 LAB L100.2400 0-5 % Normal EO% 0.8 LAB L100.2500 0-1 % Normal BASO% 0.2 LAB L100.2550 0.0-0.9 % Normal IM GRAN % 0.200 Result Comment: IG% - Immature Granulocytes (promyelocytes, myelocytes and metamyelocytes) > 1% indicates that a LEFT SHIFT is Present. LAB L100.2620 2.0-7.7 X10 3/uL Normal Absolute Neut 5.7 LAB L100.2720 0.83-4.51 X10 3/ul Normal Absolute Lymph 3.72 Performed By: #### L100.0100, L101.9900 #### [facility] [address] [place], [place], [id number] ERYTHROCYTE SED RATE Collected: 05/28/2018 Status: F Source: [place] 4:22 PM [facility] REPOSITORY TYPE CODE TESTS RESULT OUT OF RANGE REFERENCE UNITS LAB L102.0000 0-20 mm/hr Normal SED RATE 10 Performed By: #### L100.0100, L101.9900 #### [facility] [address]. [place], [place], [address] CRP Collected: 05/28/2018 Status: F Source: [place] 4:22 PM [facility] REPOSITORY TYPE CODE TESTS RESULT OUT OF RANGE REFERENCE UNITS LAB L501.6710 0.0-3.0 mg/L High 14.40 C-REACTIVE PROT Result Comment: C-Reactive Protein (CRP) provides useful information for the diagnosis, therapy and monitoring of inflammatory processes and associated diseases. For the evaluation of Relative Risk for Cardiovascular Disease, a High Sensitivity CRP (HSCRP) should be ordered. Performed By: #### L501.6710 #### [facility] [address] [place] [place], [address] PROGRESS Observed: 03/27/2018 Status: COMPLETED Source: [place] 9:18 AM CLINIC OTHER CAMPUS REPOSITORY HNO ID: [id number] Author: Antonio Flowers Service: (none) Author Type: Physician Type: Progress Notes Filed: 03/27/2018 9:40 AM Note Text: Henrique Pace is an 47 year old woman who presents for annual exam. LMP: Patient's last menstrual period was 02/27/2018 (approximate). Dysmenorrhea:none. Cyclic symptoms include none. Sexually active? YES Contraception: Nuvaring Sexual dysfunction: none PAST MEDICAL HISTORY Diagnosis Date - Contraception management - Family planning, lunelle surveillance - Secondary hypothyroidism PAST SURGICAL HISTORY Procedure Laterality Date - PAP SMEAR 05/24/2010 - TOTAL KNEE REPLACEMENT Left 2018 - TOTAL KNEE REPLACEMENT Right 2018 FAMILY HISTORY Problem Relation Age of Onset - Thyroid Mother - Diabetes Sister Social History Marital status: Spouse name: Years of education: Number of children: Social History Main Topics Smoking status: Former Smoker Packs/day: 0.00 Years: 0.00 Smokeless tobacco: Never Used Alcohol use: Yes Comment: A FEW DRINKS A MONTH Drug use: No Sexual activity: Yes MEDICATIONS: cetirizine (ZYRTEC) 10 mg tablet DAILY levothyroxine (SYNTHROID) 137 mcg tablet DAILY NUVARING 0.12-0.015 mg/24 hr vaginal ring INSERT 1 RING INTRAVAGINALLY AND LEAVE IN PLACE FOR 3 WEEKS, THEN REMOVE FOR 1 WEEK LEVOTHYROXINE SODIUM (LEVOTHYROXINE ORAL) Take 50 mcg by mouth once daily. TRAMADOL HCL (TRAMADOL ORAL) Take 50 mg by mouth once daily. ALLERGIES:Patient has no known allergies. Hormone replacement: never Hx of abnormal pap? No Regular self-breast exam? Yes History of abnormal mammogram? No REVIEW OF SYSTEMS: GENERAL:Denies fever, chills, night sweats, or changes in weight. DERMATOLOGIC: Denies any new skin conditions, rashes or changing moles. EYES: Denies recent visual changes. ENT: Denies hearing loss or tinnitus. RESPIRATORY: Denies any cough, dyspnea, or wheezing. CARDIOVASCULAR:Denies any chest pain with exertion or at rest, palpitations, syncope, shortness of breath or edema. BREASTS: Denies any breast lumps, tenderness, dimpling, skin changes, or nipple discharge. GASTROINTESTINAL: Denies any nausea, vomiting, or abdominal pain. , Denies heartburn., Denies any change in bowel habits. GENITOURINARY: Denies urinary frequency, dysuria, hematuria, nocturia, incontinence. and Denies abnormal vaginal discharge or bleeding, pelvic pain, menstrual or menopausal problems FISHERIES MANAGEMENT BIOLOGIST: Denies any abnormal vaginal discharge, irregular bleeding, vaginal dryness, dypareunia, or change in libido MUSCULOSKELETAL: Denies any joint swelling, crepitus, or loss of range of motion., Denies back pain., Denies joint pain. NEURO:Denies any headaches, tremors, dizziness, vertigo, memory loss, confusion., Denies weakness, numbness or tingling. PSYCHIATRIC: Denies any anxiety or depression. HEMATOLOGIC/LYMPHATIC/IMMUNOLOGIC: Denies anemia, bruising, bleeding abnormalities. ENDOCRINE: Denies any heat or cold intolerance, polyuria, polyphasia or polydipsia. OBJECTIVE: GENERAL APPEARANCE: cooperative, in no acute distress, alert SKIN:Color normal, Vascularity normal, No evidence of bleeding or bruising, No lesions noted, No edema, Temperature normal, Texture normal, Mobility and turgor normal, Nails normal without clubbing NECK: Supple, no adenopathy; thyroid symmetric, normal size, no bruits BREASTS: breasts symmetric, no dominant or suspicious mass, no skin or nipple changes, no axillary adenopathy HEART:Normal PMI, Regular rate and rhythm, Normal heart sounds, S1 and S2 and No murmurs. ABDOMEN: soft, non-tender, no masses, no hepatosplenomegaly and no lymphadenopathy EXTREMITIES: No skin discoloration, No edema and Normal pulses bilaterally. PELVIC EXAM : External genitalia, cervix, and vagina normal., Bimanual exam normal. RECTAL EXAM:deferred PATIENT EDUCATION:Women's Health counselling done. ASSESSMENT/PLAN: 1. Routine cervical smear - ICD9: V76.2, ICD10: Z12.4 (primary diagnosis) - Completed pelvic and breast exam - Encouraged monthly BSE - Follow up for annual exam in one year. - PAP, CYTO FISHERIES MANAGEMENT BIOLOGIST 2. Encounter for screening mammogram for malignant neoplasm of breast - ICD9: V76.12, ICD10: Z12.31 - Completed pelvic and breast exam - Encouraged monthly BSE - Follow up for annual exam in one year. - MAMMOGRAM DIGITAL SCREENING BILAT (AG,AV) 3. Encounter for initial prescription of vaginal ring hormonal contraceptive - ICD9: V25.02, ICD10: Z30.015 - Rx Nuvaring 4. Visit for pelvic exam - ICD9: V72.31, ICD10: Z01.419 - Completed pelvic and breast exam - Encouraged monthly BSE - Follow up for annual exam in one year. Antonio Flowers MD CNOV Observed: 03/27/2018 Status: COMPLETED Source: [place] 9:00 AM CLINIC OTHER CAMPUS REPOSITORY Office Visit (AGGYNBMG) HENRIQUE TURPIN ([id number]) 1970 F Date Time Provider Department 03/27/18 9:00 AM ANTONIO FLOWERS AGGYNBMG During your visit today, we recorded the following information about you: Blood pressure Weight Height Last Period 130/86 99.8 kg 1.778 m 02/27/18 Antonio Flowers MD 03/27/2018 9:40 AM Signed Henrique Echevarria Sanjeev is an 47 year old woman who presents for annual exam. LMP: Patient's last menstrual period was 02/27/2018 (approximate). Dysmenorrhea:none. Cyclic symptoms include none. Sexually active? YES Contraception: Nuvaring Sexual dysfunction: none PAST MEDICAL HISTORY Diagnosis Date - Contraception management - Family planning, lunelle surveillance - Secondary hypothyroidism PAST SURGICAL HISTORY Procedure Laterality Date - PAP SMEAR 05/24/2010 - TOTAL KNEE REPLACEMENT Left 2018 - TOTAL KNEE REPLACEMENT Right 2018 FAMILY HISTORY Problem Relation Age of Onset - Thyroid Mother - Diabetes Sister Social History Marital status: Spouse name: Years of education: Number of children: Social History Main Topics Smoking status: Former Smoker Packs/day: 0.00 Years: 0.00 Smokeless tobacco: Never Used Alcohol use: Yes Comment: A FEW DRINKS A MONTH Drug use: No Sexual activity: Yes MEDICATIONS: cetirizine (ZYRTEC) 10 mg tablet DAILY levothyroxine (SYNTHROID) 137 mcg tablet DAILY NUVARING 0.12-0.015 mg/24 hr vaginal ring INSERT 1 RING INTRAVAGINALLY AND LEAVE IN PLACE FOR 3 WEEKS, THEN REMOVE FOR 1 WEEK LEVOTHYROXINE SODIUM (LEVOTHYROXINE ORAL) Take 50 mcg by mouth once daily. TRAMADOL HCL (TRAMADOL ORAL) Take 50 mg by mouth once daily. ALLERGIES:Patient has no known allergies. Hormone replacement: never Hx of abnormal pap? No Regular self-breast exam? Yes History of abnormal mammogram? No REVIEW OF SYSTEMS: GENERAL:Denies fever, chills, night sweats, or changes in weight. DERMATOLOGIC: Denies any new skin conditions, rashes or changing moles. EYES: Denies recent visual changes. ENT: Denies hearing loss or tinnitus. RESPIRATORY: Denies any cough, dyspnea, or wheezing. CARDIOVASCULAR:Denies any chest pain with exertion or at rest, palpitations, syncope, shortness of breath or edema. BREASTS: Denies any breast lumps, tenderness, dimpling, skin changes, or nipple discharge. GASTROINTESTINAL: Denies any nausea, vomiting, or abdominal pain. , Denies heartburn., Denies any change in bowel habits. GENITOURINARY: Denies urinary frequency, dysuria, hematuria, nocturia, incontinence. and Denies abnormal vaginal discharge or bleeding, pelvic pain, menstrual or menopausal problems FISHERIES MANAGEMENT BIOLOGIST: Denies any abnormal vaginal discharge, irregular bleeding, vaginal dryness, dypareunia, or change in libido MUSCULOSKELETAL: Denies any joint swelling, crepitus, or loss of range of motion., Denies back pain., Denies joint pain. NEURO:Denies any headaches, tremors, dizziness, vertigo, memory loss, confusion., Denies weakness, numbness or tingling. PSYCHIATRIC: Denies any anxiety or depression. HEMATOLOGIC/LYMPHATIC/IMMUNOLOGIC: Denies anemia, bruising, bleeding abnormalities. ENDOCRINE: Denies any heat or cold intolerance, polyuria, polyphasia or polydipsia. OBJECTIVE: GENERAL APPEARANCE: cooperative, in no acute distress, alert SKIN:Color normal, Vascularity normal, No evidence of bleeding or bruising, No lesions noted, No edema, Temperature normal, Texture normal, Mobility and turgor normal, Nails normal without clubbing NECK: Supple, no adenopathy; thyroid symmetric, normal size, no bruits BREASTS: breasts symmetric, no dominant or suspicious mass, no skin or nipple changes, no axillary adenopathy HEART:Normal PMI, Regular rate and rhythm, Normal heart sounds, S1 and S2 and No murmurs. ABDOMEN: soft, non-tender, no masses, no hepatosplenomegaly and no lymphadenopathy EXTREMITIES: No skin discoloration, No edema and Normal pulses bilaterally. PELVIC EXAM : External genitalia, cervix, and vagina normal., Bimanual exam normal. RECTAL EXAM:deferred PATIENT EDUCATION:Women's Health counselling done. ASSESSMENT/PLAN: 1. Routine cervical smear - ICD9: V76.2, ICD10: Z12.4 (primary diagnosis) - Completed pelvic and breast exam - Encouraged monthly BSE - Follow up for annual exam in one year. - PAP, CYTO FISHERIES MANAGEMENT BIOLOGIST 2. Encounter for screening mammogram for malignant neoplasm of breast - ICD9: V76.12, ICD10: Z12.31 - Completed pelvic and breast exam - Encouraged monthly BSE - Follow up for annual exam in one year. - MAMMOGRAM DIGITAL SCREENING BILAT (AG,AV) 3. Encounter for initial prescription of vaginal ring hormonal contraceptive - ICD9: V25.02, ICD10: Z30.015 - Rx Nuvaring 4. Visit for pelvic exam - ICD9: V72.31, ICD10: Z01.419 - Completed pelvic and breast exam - Encouraged monthly BSE - Follow up for annual exam in one year. Antonio Flowers MD Referring Provider: SELF [200] Allergies As of Date: 03/27/2018 (No Known Allergies) Date Reviewed: 03/27/2018 Reviewed by: Antonio Flowers - Fully Assessed Reason for Visit: Yearly Exam [187] Primary Visit Diagnosis:Routine cervical smear [Z12.4] Other Visit Diagnoses:Encounter for screening mammogram for malignant neoplasm of breast [Z12.31] Encounter for initial prescription of vaginal ring hormonal contraceptive [Z30.015] Visit for pelvic exam [Z01.419] Order(s):PAP, CYTO FISHERIES MANAGEMENT BIOLOGIST [[id number]] Order #: [id number] TREY SCREENING [[id number]] Order #: [id number] FUTURE Etonogestrel-Ethinyl Estradiol (NUVARING) 0.12-0.015 mg/24 hr vaginal ringINSERT 1 RING INTRAVAGINALLY AND LEAVE IN PLACE FOR 3 WEEKS, THEN REMOVE FOR 1 WEEKDisp: 1 EachRfl: 11 Prescriptions as of 03/27/2018 Sig: CETIRIZINE 10 MG TABLET DAILY LEVOTHYROXINE 137 MCG TABLET DAILY ETONOGESTREL-ETHINYL ESTRADIO* INSERT 1 RING INTRAVAGINALLY * LEVOTHYROXINE ORAL Take 50 mcg by mouth once chastity* TRAMADOL ORAL Take 50 mg by mouth once kelli* Problem List As Of Date 03/27/2018 Noted Resolved Routine cervical smear [Z12.4] INVALID FOR* Encounter for screening mammogram for malignant*INVALID FOR* Encounter for initial prescription of vaginal r*INVALID FOR* Visit for pelvic exam [Z01.419] INVALID FOR* Prescriptions ordered this encounter Disp Refills Start End ETONOGESTREL-ETHINYL ESTRADIOL 0.12 * 1 Ea* 11 03/27/2018 Sig: INSERT 1 RING INTRAVAGINALLY AND LEAVE IN PLACE FOR 3 WEEKS, THEN REMOVE FOR 1 WEEK Medications Discontinued During This Encounter NUVARING 0.12-0.015 mg/24 hr vaginal* 1 Ea* 0 02/18/2018 03/27/2018 Sig: INSERT 1 RING INTRAVAGINALLY AND LEAVE IN PLACE FOR 3 WEEKS, THEN REMOVE FOR 1 WEEK Disc: Reason for discontinue is not on file. Level of Service: WELLNESS EXAMS EST 40-64 YRS [[id number]] Disposition: Return in about 1 year (around 03/27/2019). Follow-up and Disposition History Recorded Encounter Status:Closed by ANTONIO FLOWERS MD on 03/27/18 OBSOLETE Observed: 02/16/2018 Status: COMPLETED Source: [place] 12:00 AM CLINIC OTHER CAMPUS REPOSITORY Refill (ZIGGY) HENRIQUE TURPIN ([id number]) 1970 F Date Time Provider Department 02/16/18 ANTONIO FLOWERS During your visit today, we recorded the following information about you: Martha Morgan 02/18/2018 11:17 AM Signed Pharmacy faxed requesting the following refill. Patient's last appointment: with Antonio Flowers MD was 01-17-2017 Nothing scheduled Pending Prescriptions Disp Refills NUVARING 0.12 MG -0.015 MG/24 HR VAGINAL 1 0 Sig: INSERT 1 RING INTRAVAGINALLY AND LEAVE IN PLACE FOR 3 WEEKS, THEN REMOVE FOR 1 WEEK GA: patient will need appt before next refil Patient Phone numbers: [phone] (home) [phone] (work) Request is for script(s) to be escript to pharmacy. Martha Morgan Allergies As of Date: 02/16/2018 (No Known Allergies) Date Reviewed: 01/17/2017 Reviewed by: Antonio Flowers - Fully Assessed Reason for Visit: Refill Request [94] Cmt: nuvaring Reason For Visit History Recorded Order(s):NUVARING 0.12-0.015 mg/24 hr vaginal ringINSERT 1 RING INTRAVAGINALLY AND LEAVE IN PLACE FOR 3 WEEKS, THEN REMOVE FOR 1 WEEKDisp: 1 EachRfl: 0 Prescriptions as of 02/16/2018 Sig: NUVARING 0.12 MG -0.015 MG/24* INSERT 1 RING INTRAVAGINALLY * LEVOTHYROXINE ORAL Take 50 mcg by mouth once chastity* TRAMADOL ORAL Take 50 mg by mouth once kelli* Problem List As Of Date 02/16/2018 Noted Resolved Routine cervical smear [Z12.4] INVALID FOR* Encounter for screening mammogram for malignant*INVALID FOR* Encounter for initial prescription of vaginal r*INVALID FOR* Prescriptions ordered this encounter Disp Refills Start End NUVARING 0.12 MG -0.015 MG/24 HR VAG* 1 Ea* 0 02/18/2018 Sig: INSERT 1 RING INTRAVAGINALLY AND LEAVE IN PLACE FOR 3 WEEKS, THEN REMOVE FOR 1 WEEK Medications Discontinued During This Encounter NUVARING 0.12-0.015 mg/24 hr vaginal* 1 Ea* 0 01/21/2018 02/18/2018 Sig: INSERT 1 RING VAGINALLY AND LEAVE IN PLACE FOR 3 WEEKS, THEN REMOVE FOR 1 WEEK Disc: Reason for discontinue is not on file. Encounter Status:Closed by ANTONIO FLOWERS MD on 02/18/18 DISCHARGE SUMMARY Observed: 01/23/2018 Status: F Source: [place] 2:13 PM [facility] REPOSITORY [facility] Medical Records Department [address] [place] [address] Discharge Summary 01/23/18 1318 MR#: [id number] Acct: [id number] Name: HENRIQUE TURPIN Rep #: [id number] : 1970 47 From: Paulie DAMIAN PCP: Care Physician, No Primary Status: DIS TONY Y Location: MS3 [id number] <Paulie Hernandez - Last Filed: 01/23/18 13:18> Discharge Date and Diagnosis Date of Admission: 01/22/18 Date of Discharge: 01/23/18 - Primary Discharge Diagnosis Active and Suspected Problems Colitis (Acute) - suspect viral gastroenteritis BRBPR 2/2 above Hypokalemia 2/2 diarrhea Hypothyroidism - Secondary Discharge Diagnosis Chronic Problems Hypothyroidism (Chronic) Osteoarthritis (Chronic) Hospital Course and Treatment Imaging Results: CT/Abdomen/Pelvis WITH Contrast IMPRESSION: Findings suggestive of a colitis worse in the left hemicolon. Operations: None Procedures: None Summary of Care Provided: Physical exam on day of discharge: General: Resting comfortably NAD Psych: A/Ox3 normal affect HEENT: PEARRLA AT NC Neck: Supple NT CV: RRR no m/t/r/g/h Resp: CTA Abd: [id number] Soft NT no guarding or rigidity Ext: DP2+= no edema Skin: W/D normal turgor Lymph/Heme: No active bleeding or adenopathy Neuro: CN2-12 intact Hospital course: The patient is a 47 year old F with a hx of hypothyroidism who presented to the ER with 5 days of diarrhea with boody mucus the last three days. She had tried taking cipro and flagyl x1 day with no relief. She was having at least 10 rounds of diarrhea per day. Initially she had some vomiting, but did not have any further nausea. In the ER CT showed colitis. Hemoglobin was normal, potassium was low. She was admitted to the medical surgical floor on IV Cipro and Flagyl and IV fluids with potassium replacement. She did well overnight. Her diet was advanced to full and she had no nausea or vomiting. Her stools decreased in frequency and she had no further blood noted. She was transitioned to oral Flagyl and Cipro for 5 more days and discharged home in stable condition. Enteric panel was negative, C. difficile was negative, ova and parasites test is pending will not be available for 5-7 days. She will need to follow-up with her PCP in 1-2 weeks. This patient was seen by Paulie Hernandez PA-C under the supervision of Doctor Renetta. [] Discharge Diet: No Restrictions Discharge Activity: Return to Normal Activity Home Medications: Medications to take at Discharge Cetirizine HCl [Zyrtec] 10 mg PO DAILY 01/22/18 Levothyroxine [Synthroid] 137 mcg PO DAILY 01/22/18 Ciprofloxacin [Cipro] 500 mg PO BID #10 tab 01/23/18 Metronidazole [Flagyl] 500 mg PO TID #15 tab 01/23/18 Following Prescrptions Were Given to Patient: Ciprofloxacin [Cipro] 500 mg PO BID #10 tab Metronidazole [Flagyl] 500 mg PO TID #15 tab Primary Care Physician: Care Physician,No Primary [Primary Care Provider] - Please follow up with your Primary Care Physician in: 1-2 weeks Disposition: Home Minutes spent on discharge:: 35 Patient Condition:: Stable Medical Necessity - Tobacco Use Smoking Status: Never smoker Tobacco Use: Non-smoker Meaningful Use Info Meaningful Use Diagnoses (Choose all that apply): None applicable <Susie Jackson E - Last Filed: 01/23/18 14:13> Discharge Date and Diagnosis - Primary Discharge Diagnosis Acute colitis of the left hemicolon, probably viral in etiology. - Secondary Discharge Diagnosis Chronic Problems Hypothyroidism (Chronic) Osteoarthritis (Chronic) Hospital Course and Treatment Summary of Care Provided: Hospitalist note: Discharge summary above reviewed and I agree with above discharge and treatment plan. Patient was admitted for diarrhea, bloody stool and abdominal pain, found to have acute colitis of the left hemicolon on CT scan abdomen and pelvis. Her routine blood work was unremarkable except for mild hypokalemia, no leukocytosis. She was treated with IV fluids, IV antibiotics, IV pain medications and IV antiemetics. On the day of discharge, patient symptoms improved, has no more abdominal pain, no more bloody stool. She remains afebrile. Repeat blood work again today was unremarkable. Stool for C. difficile was negative. Stool for enteric pathogens were negative. Lactic acid was normal. This acute colitis attributed to infectious colitis likely viral in etiology. Patient discharged home in a stable medical condition, discharged on ciprofloxacin and Flagyl for 7 days of treatment, recommended from PCP in 1-2 weeks. - Physical Exam General: Alert, Oriented x3, Cooperative, No apparent distress. HEENT: Atraumatic, PERRLA, EOMI. Neck: Supple, No JVD, Negative Carotid Bruits, Trachea Midline, Thyroid Normal. Lungs: Clear to auscultation, Normal air movement, No rhonchi, No wheeze, No rales. Cardiovascular: Regular rate, Regular Rhythm, Normal S1, Normal S2, PMI Normal. Abdomen: Bowel Sounds Present, Soft, Non Tender, Non-Distended, No Hepato-splenomegaly. Extremities: No clubbing, No cyanosis, No edema Skin: No rashes, No breakdown Neurological: Neuro grossly intact Vital Signs are stable. This note was generated with [employer] dictation software. It may contain incorrect words, spelling, and punctuation that were not noted in checking the note before signing. Minutes spent on discharge:: 25 Patient Condition:: Stable Meaningful Use Info Meaningful Use Diagnoses (Choose all that apply): None applicable Code Visit OBSV E AND M: 78148 Observation care discharge 01/23/18 1325 <Electronically signed by Paulie DAMIAN> Date Paulie DAMIAN 01/23/18 1413<Electronically signed by Susie Jackson MD> Cosigner Signature (if applicable): Date Susie Jackson MD CC: No Primary Care Physician; RICKIE Hernandez; Susie Jackson; PCP Signed DISCHARGE INSTRUCTION Observed: 01/23/2018 Status: F Source: [place] 11:36 AM [facility] RE[facility] Medical Records Department [address] [place] [address] Instructions for Home/Discharge Instructions 01/23/18 1135 MR#: [id number] Acct: [id number] Name: HENRIQUE TURPIN Rep #: [id number] : 1970 47 From: Paulie DAMIAN PCP: Care Physician, No Primary Status: ADM TONY - Discharge Diagnoses Current Active Problems: Current Active and Chronic Problems Colitis (Acute) Hypothyroidism (Chronic) Osteoarthritis (Chronic) You will use the following diet at home:: No restrictions Your food should be the consistency of: Regular Your liquids should be the consistency of: Regular/Thin Discharge Activity: Return to Normal Activity Allergies/Adverse Reactions: Allergies No Known Allergies Allergy (Verified 01/22/18 17:19) Medications to take at Discharge Cetirizine HCl [Zyrtec] 10 mg PO DAILY 01/22/18 Levothyroxine [Synthroid] 137 mcg PO DAILY 01/22/18 Ciprofloxacin [Cipro] 500 mg PO BID #10 tab 01/23/18 Metronidazole [Flagyl] 500 mg PO TID #15 tab 01/23/18 The following prescriptions were given: Ciprofloxacin [Cipro] 500 mg PO BID #10 tab Metronidazole [Flagyl] 500 mg PO TID #15 tab Primary Care Physician: Care Physician,No Primary [Primary Care Provider] - Please follow up with your Primary Care Physician in: 1-2 weeks Test Results: Test results from this visit will be discussed in further detail at your follow-up appointment, if applicable. Proposed Discharge Date: 01/23/18 01/23/18 1136 <Electronically signed by Paulie DAMIAN> Date Paulie DAMIAN CC: No Primary Care Physician CBC W/DIFF, AUTOMATED Collected: 01/23/2018 Status: F Source: [place] 6:15 AM [facility] REPOS[facility] TYPE CODE TESTS RESULT OUT OF RANGE REFERENCE UNITS LAB L100.1000 4.4-11.0 K/mm3 Normal WBC 6.9 LAB L100.1200 4.2-5.4 M/mm3 Low RBC 4.03 LAB L100.1300 12.0-15.0 g/dl Normal HGB 13.1 LAB L100.1400 37-47 % Normal HCT 37.6 LAB L100.1500 81-99 fL Normal MCV 93.3 LAB L100.1600 27.0-32.0 pg High MCH 32.5 LAB L100.1700 32-36 g/gl Normal MCHC 34.8 LAB L100.1810 11.6-14.6 % Normal RDW CV 12.3 LAB L100.1820 35.1-43.9 fl Normal RDW SD 41.2 LAB L100.1900 150-450 K/mm3 Normal PLT 255 LAB L100.2000 6.2-12.0 fl Normal MPV 10.4 LAB L100.2100 47-70 % Low NEUT% 45.4 LAB L100.2200 19-41 % High LY% 41.1 LAB L100.2300 0-10 % High MONO% 10.8 LAB L100.2400 0-5 % Normal EO% 2.2 LAB L100.2500 0-1 % Normal BASO% 0.4 LAB L100.2550 0.0-0.9 % Normal IM GRAN % 0.100 Result Comment: IG% - Immature Granulocytes (promyelocytes, myelocytes and metamyelocytes) > 1% indicates that a LEFT SHIFT is Present. LAB L100.2620 2.0-7.7 X10 3/uL Normal Absolute Neut 3.1 LAB L100.2720 0.83-4.51 X10 3/ul Normal Absolute Lymph 2.85 Performed By: #### L100.0100 #### [facility] [address] [place] [address]. [place], [address] BASIC METABOLIC Collected: 01/23/2018 Status: F Source: [place] PROFILE (BMP) 6:15 AM [facility] REPOS[facility] TYPE CODE TESTS RESULT OUT OF RANGE REFERENCE UNITS LAB L501.0100 74-106 mg/dL Normal GLU 84 Result Comment: Please note revised GLUCOSE reference range effective 2017. LAB L501.1000 7-18 mg/dL Low BUN 5 LAB L501.1100 0.55-1.02 mg/dL Normal CREAT,SERUM 0.72 Result Comment: The validity of the calculated GFR AND GFRAA in patients over 70 years has not been determined. Clinical correlation is essential. LAB L501.1110 >60 mL/min Normal EST GFR 93 Result Comment: Non- GFR Calc LAB L501.1115 >60 mL/min Normal EST GFR - AA 113 Result Comment: GFR Calc LAB L501.1255 ml/min Normal Estimated CRCL 102.03 LAB L501.1300 10-20 RATIO Low BUN/CRE 7.0 LAB L501.2200 8.5-10 mg/dL Low .1 CA 8.0 LAB L501.5300 136-14 mmol/L 5 NA Normal 144 LAB L501.5600 3.5-5. mmol/L 1 K Normal 3.5 LAB L501.5900 98-107 mmol/L High CL 110 LAB L501.6100 21.0-3 mmol/L 2.0 CO2 Normal 25.0 LAB L501.6200 5-15 GAP Normal 9 Performed By: #### L500.2500 #### [facility] [address], [place], [id number] Observed: 01/22/2018 Status: F Source: [place] ENTERIC PATHOGEN 9:05 [facility] PANEL STOOL REPOSITORY Order Date: 01/22/18 EP PANEL STOOL Normal Reference Range = Not Detected Not detected for Campylobacter group, Salmonella species, Shigella species, Vibrio Group, Yersinia enterocolitica, EHEC (Shiga Toxin 1, Shiga Toxin 2), Norovirus Gl/Gll, and Rotavirus A. Other common stool pathogens are not detected on this panel include: Aeromonas/Plesiomonas or parasites. Order testing for these organisms separately if suspected. This is an amplified DNA test which makes it both specific and sensitive. CAMPYLOBACTER Not Detected Salmonella Not Detected Shigella sp. Not Detected Shiga Toxin Not Detected Yersinia Not Detected VIBRIO Not Detected Norovirus Not Detected Rotavirus Not Detected Performed By: #### M100.637 #### [facility] [address], [place], [id number] Observed: 01/22/2018 Status: F Source: [place] OVA AND PARASITES 9:05 [facility] REPOSITORY Order Date: 01/22/18 O + P OVA AND PARASITES EXAM, ROUTINE These results were obtained using wet preparation(s) and trichrome stained smear. This test does not include testing for Crytosporidium parvum, Cyclospora, or Microsporidia. TESTING PERFORMED AT [facility]. ORIGINAL REPORT ON FILE IN LAB CONTAINS ADDITIONAL TEST SITE INFORMATION. Ova/Parasite Exam NO OVA, CYSTS, OR PARASITES FOUND. Performed By: #### M600.5000 #### [facility] [address] [place] [address]. [place], [address] Observed: 01/22/2018 Status: F Source: [place] CDIFF (MOLECULAR) 7:15 PM [facility] REPOSITORY Is the patient receiving laxatives? N New/unexplained onset of 3 or more stools in past 24 hrs? Y Comments: please run ova and para and any other stool sample test Cdiff-Molecular Normal Reference Range = Negative C. Diff DNA Negative- No toxigenic C. Diff DNA Detected NAAT METHOD Testing was performed using nucleic acid amplification Performed By: #### M100.6796 #### [facility] [address] [place] [address]. [place], [address] HISTORY AND PHYSICAL Observed: 01/22/2018 Status: F Source: [place] EXAM 6:10 PM [facility] Medical Records Department [address] [place] [id number] History and Physical 01/22/18 1750 MR#: [id number] Acct: [id number] Name: HENRIQUE TURPIN Rep #: [id number] : 1970 47 From: Paulie DAMIAN PCP: Care Physician, No Primary Status: ADM IN Y Location: NM3 [id number] <Paulie Hernandez - Last Filed: 01/22/18 17:50> Problem List (1) Colitis Status: Acute (2) Hypothyroidism Status: Chronic (3) Osteoarthritis Status: Chronic History of Present Illness Date of Admission: 01/22/18 Chief Complaint: diarrhea The patient is a 47 year old F with a hx of hyopthyroidism and osteoarthritis s/p BL knee repair this year who presents to the ER with intractable diarrhea. This began 5 days ago. She has had frequent loos stools with diffuse mild abdominal pain sometimes more than 10 per day. The first day she did throw up but the nausea has resolved. Three days ago she developed mucousy bright red blood in her stools. She has no hx of infectious colitis or C diff. 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 She has no fevers or chills. She has no difficulty eating. She currently has no belly pain. She is resting comfortably in bed. She has not had a BM since admission. [] Past Medical History Past Medical History (Chronic Problems): Chronic Problems Hypothyroidism (Chronic) Osteoarthritis (Chronic) Allergies No Known Allergies Allergy (Verified 01/22/18 17:19) Home Medications: Ambulatory Orders Medication Instructions Recorded Cetirizine HCl [Zyrtec] 10 mg PO DAILY 01/22/18 Levothyroxine [Synthroid] 137 mcg PO DAILY 01/22/18 Surgical History: total knee arthroplasty Psychiatric History: No pertinent psych hx [employer] History: No pertinent [employer]IST history Lives: Roommate Smoking Status: Never smoker Tobacco Use: Non-smoker Alcohol: None Drugs: None - *Family History Maternal History Items: No pertinent history Paternal History Items: No pertinent history Review of Systems Constitutional: Denies: Chills, Fever, Weight Change HEENT: Denies: Head Aches, Sinus Congestion, Sinus Drainage Cardiovascular: Denies: Chest Pain, Palpitations Respiratory: Denies: Cough, Shortness of breath at rest, Sputum production Gastrointestinal: Reports: Abdominal Pain, Diarrhea, Hematochezia. Denies: Nausea, Vomiting Genitourinary: Denies: Dysuria Musculoskeletal: Denies: Joint Pain, Joint Tenderness Skin: Denies: Rash, Wounds Neurological: Denies: Numbness, Tingling, Focal weakness Psychiatric: Denies: Anxiety, Depression, Homicidal Ideations, Suicidal Ideations Hematologic/ Lymphatic: Denies: Easy Bruising, Easy Bleeding VTE Information - Inpt Only VTE Present on Admission: No VTE Mechan Device Prophylaxis: None VTE Pharm Prophylaxis ordered?: No Reason prophylaxis not ordered:: Medical Contraindication Patient Problems: Active and Suspected Problems Colitis (Acute) - Physical Exam General: Alert, Oriented x3, Cooperative HEENT: Atraumatic, PERRLA, EOMI, Normocephalic Neck: Supple, No JVD, Negative Carotid Bruits Lungs: Clear to auscultation, Normal air movement Cardiovascular: Regular rate, No murmurs Abdomen: Bowel Sounds Present, Soft, Non Tender Extremities: No edema, Capillary Refill Less than 3 Seconds Skin: No rashes, No breakdown Musculoskeletal: No Tenderness to Palpation of Joints or Extremities Neurological: Cranial nerves II-XII grossly intact Psych/Mental Status: Normal Affect, Appropriate, Alert and oriented to time, place, person, mood and affect Vital Signs Temp Pulse Resp BP Pulse Ox 98.4 F 63 16 148/90 H 100 01/22/18 17:19 01/22/18 17:19 01/22/18 17:19 01/22/18 17:19 01/22/18 17:19 Oxygen Delivery Method Room Air Weight: 215 lb Body Mass Index (BMI) 31.7 Assessment/Plan All Active Problems Colitis (Acute) 1. Colitis - with bloody mucousy diarrhea. Hgb normal. CT with Left hemicolon colitis. Belly currently is benign on exam. suspected viral gastroenteritis. 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 Continue cipro flagyl. Check ova / parasites. Enteric panel. Replete fluids. Lipase neg. 2. hypokalemia 2/2 above - replete. 3. Hypothyroid continue synthroid. 4. Osteoarthritis - BL knee repair earlier this year DVT ppx: SCDs This patient was seen by Paulie Hernandez PA-C under the supervision of Doctor Renetta. <Susie Jackson - Last Filed: 01/22/18 18:09> History of Present Illness The patient is a 47 year old F [] Past Medical History Allergies No Known Allergies Allergy (Verified 01/22/18 17:19) - Physical Exam Vital Signs Temp Pulse Resp BP Pulse Ox 98.4 F 63 16 148/90 H 100 01/22/18 17:19 01/22/18 17:19 01/22/18 17:19 01/22/18 17:19 01/22/18 17:19 Oxygen Delivery Method Room Air Weight: 215 lb Body Mass Index (BMI) 31.7 Assessment/Plan Hospitalist note: I am seeing this patient in conjunction with Paulie Hernandez. I independently seen and examined the patient. History and physical, laboratory data and imaging studies reviewed and I agree with the above treatment plan. Patient was admitted for diarrhea, bloody stool and abdominal discomfort/pain, found to have acute colitis of the left hemicolon which is consistent with probably infectious colitis. Her vital signs are stable. Her routine blood work is remarkable for mild hypokalemia, otherwise normal. - Physical Exam General: Alert, Oriented x3, Cooperative, No apparent distress. HEENT: Atraumatic, PERRLA, EOMI. Neck: Supple, No JVD, Negative Carotid Bruits, Trachea Midline, Thyroid Normal. Lungs: Clear to auscultation, Normal air movement, No rhonchi, No wheeze, No rales. Cardiovascular: Regular rate, Regular Rhythm, Normal S1, Normal S2, PMI Normal. Abdomen: Bowel Sounds Present, Soft, Non Tender, Non-Distended, No Hepato-splenomegaly. Extremities: No clubbing, No cyanosis, No edema Skin: No rashes, No breakdown Neurological: Neuro grossly intact Vital Signs are stable. Assessment and plan: #1 acute colitis of the left hemicolon: Likely infectious colitis. CT scan abdomen and pelvis reviewed. Patient reported diarrhea with loose stool. Denies fever chills. Vital signs are stable. Routine blood work, #4 hypokalemia, otherwise normal. No fever, no leukocytosis. Plan: Admit to MedSurg floor, keep on clear liquids, IV fluids, IV antibiotics, IV morphine as needed for pain, IV antiemetics, stool for C. difficile, stool for enteric pathogens, stool for omental signs. #2 chronic medical problems: Continue current medications as above. This note was generated with [employer] dictation software. It may contain incorrect words, spelling, and punctuation that were not noted in checking the note before signing. Code Visit Inpatient E AND M: 37056 Init Hosp L2 01/22/18 4225 <Electronically signed by Paulie Hernandez PA> Date Paulie DAMIAN 01/22/18 1809<Electronically signed by Susie Jackson MD> Cosigner Signature: Date (if applicable) Susie Jackson MD CC: No Primary Care Physician; RICKIE Hernandez; Susie Jackson Signed EMERGENCY DEPARTMENT Observed: 01/22/2018 Status: F Source: [place] SUMMARY 4:32 PM [facility] Medical Records Department [address] [place] [address] Emergency Department Summary 01/22/18 1628 MR#: [id number] Acct: [id number] Name: HENRIQUE TURPIN Rep #: [id number] : 1970 47 From: Vickie Stevenson DO PCP: Care Physician, No Primary Status: REG ER - ER Visit Summary Date of Service: 01/22/18 Chief Complaint: Diarrhea and rectal bleeding [] History of Present Illness: The patient is a 47 F [presents the emergency department with complaint of diarrhea that started 5 days ago. Patient states that the diarrhea subsequently turned bloody after 3 days and now was passing bloody mucus from her rectum. Patient's had intermittent abdominal pain and cramping. Patient denies recent travel or recent antibiotic usage. 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 Patient denies any fevers. There is no family history of ulcerative colitis or Crohn's disease. She denies any weight loss or night sweats.] Physical Examination: [HEENT-PERRLA, EOMI. Cranial nerves II through XII grossly intact. TMs clear. Mucous membranes moist. No adenopathy. Cardiovascular-regular rate and rhythm without murmur or ectopy Lungs-clear to auscultation, chest wall stable without crepitus or subcu emphysema Abdomen-normoactive bowel sounds, soft. Patient has tenderness over left lower quadrant with some guarding. There is no rebound, rigidity or perineal signs. Extremities-intact 4, normal range of motion, normal pulses, atraumatic] Test Results: [CBC with differential obtain showed a white blood cell count of 8.1, hemoglobin 13.7, hematocrit 41, platelets 259. Chemistries unremarkable. Lactate was normal at 0.7. CT scan of the abdomen and pelvis showed findings consistent with colitis of the left side of the colon.] Emergency Department Course and Treatment: [I discussed results with patient and initially she did not want to be admitted to the hospital although that was my recommendation. I discussed case with Dr. Santi Tang who agreed to see the patient if she would agree to admission given the rectal bleeding and the abdominal pain he felt patient should be admitted and after expressing this to the patient she agreed to be admitted for further workup and evaluation of her diarrhea and rectal bleeding. Patient was unable to give a stool sample in the emergency department.] Treatment Plan: [Admit] Disposition: [Admit] Impression: [Colitis Rectal bleeding Diarrhea This note was generated with [employer] dictation software. It may contain incorrect words, spelling, and punctuation that were not noted in review of the chart prior to signing ED Disposition - Plan for ED Patient: Chief Complaint: Lower Extremity Injury Referrals: Care Physician,No Primary [Primary Care Provider] - What to do if you have Problems For any increased pain, shortness of breath, bleeding, nausea or vomiting, chest pain, or any unexpected problems, contact your Primary Care Provider. Call [facility] ([phone]) or report to the closest Emergency Room. Call 911 if necessary. 01/22/18 1632 <Electronically signed by Vickie Stevenson DO> Date Vickie Stevenson DO Cosigner Signature (If Indicated): Date CC: No Primary Care Physician LIVER PROFILE Collected: 01/22/2018 Status: F Source: [place] 3:50 PM [facility] REPOS[facility]ORY TYPE CODE TESTS RESULT OUT OF RANGE REFERENCE UNITS LAB L501.1500 6.4-8.2 g/dL Normal T PROT 6.9 LAB L501.1800 3.2-5.0 g/dL Low ALB 2.8 LAB L501.1950 2.2-4.2 g/dL Normal GLOB 4.1 LAB L501.4100 15-37 U/L Normal AST 24 LAB L501.4305 45-117 U/L Normal ALK P 79 LAB L501.4405 13-56 U/L Normal ALT 32 LAB L501.4600 0.20-1.00 mg/dL Normal T BILI 0.20 LAB L501.4700 0.00-0.30 mg/dL Normal D BILI 0.08 Performed By: #### L500.3400, L501.2450 #### [facility] [address], [place], [address] LIPASE Collected: 01/22/2018 Status: F Source: [place] 3:50 PM [facility] REPOS[facility]ORY TYPE CODE TESTS RESULT OUT OF REFERENCE UNITS RANGE LAB L501.2450 73-393 U/L Low LIPASE 62 Performed By: #### L500.3400, L501.2450 #### [facility] [address], [place], [address] CBC W/DIFF, AUTOMATED Collected: 01/22/2018 Status: F Source: [place] 1:50 PM [facility] REPOSITORY TYPE CODE TESTS RESULT OUT OF RANGE REFERENCE UNITS LAB L100.1000 4.4-11.0 K/mm3 Normal WBC 8.1 LAB L100.1200 4.2-5.4 M/mm3 Normal RBC 4.36 LAB L100.1300 12.0-15.0 g/dl Normal HGB 13.7 LAB L100.1400 37-47 % Normal HCT 41.0 LAB L100.1500 81-99 fL Normal MCV 94.0 LAB L100.1600 27.0-32.0 pg Normal MCH 31.4 LAB L100.1700 32-36 g/gl Normal MCHC 33.4 LAB L100.1810 11.6-14.6 % Normal RDW CV 12.5 LAB L100.1820 35.1-43.9 fl Normal RDW SD 42.9 LAB L100.1900 150-450 K/mm3 Normal PLT 259 LAB L100.2000 6.2-12.0 fl Normal MPV 10.2 LAB L100.2100 47-70 % Normal NEUT% 49.1 LAB L100.2200 19-41 % Normal LY% 40.5 LAB L100.2300 0-10 % Normal MONO% 9.0 LAB L100.2400 0-5 % Normal EO% 1.1 LAB L100.2500 0-1 % Normal BASO% 0.2 LAB L100.2550 0.0-0.9 % Normal IM GRAN % 0.100 Result Comment: IG% - Immature Granulocytes (promyelocytes, myelocytes and metamyelocytes) > 1% indicates that a LEFT SHIFT is Present. LAB L100.2620 2.0-7.7 X10 3/uL Normal Absolute Neut 4.0 LAB L100.2720 0.83-4.51 X10 3/ul Normal Absolute Lymph 3.28 Performed By: #### L100.0100 #### [facility] [address] [place], [place] [address]ja[place]. [place], [place], [address] BASIC METABOLIC Collected: 01/22/2018 Status: F Source: MELLOTT PROFILE (BMP) 1:50 PM [facility] REPOSITORY TYPE CODE TESTS RESULT OUT OF RANGE REFERENCE UNITS LAB L501.0100 74-106 mg/dL Normal GLU 84 Result Comment: Please note revised GLUCOSE reference range effective 2017. LAB L501.1000 7-18 mg/dL Normal BUN 9 LAB L501.1100 0.55-1.02 mg/dL Normal CREAT,SERUM 0.88 Result Comment: The validity of the calculated GFR AND GFRAA in patients over 70 years has not been determined. Clinical correlation is essential. LAB L501.1110 >60 mL/min Normal EST GFR 73 Result Comment: Non- GFR Calc LAB L501.1115 >60 mL/min Normal EST GFR - AA 89 Result Comment: GFR Calc LAB L501.1255 ml/min Normal Estimated CRCL 86.38 LAB L501.1300 10-20 RATIO Normal BUN/CRE 10.2 LAB L501.2200 8.5-10 mg/dL Low .1 CA 8.4 LAB L501.5300 136-14 mmol/L Normal 5 NA 143 LAB L501.5600 3.5-5. mmol/L Low 1 K 3.3 LAB L501.5900 98-107 mmol/L Normal CL 106 LAB L501.6100 21.0-3 mmol/L Normal 2.0 CO2 30.0 LAB L501.6200 5-15 Normal GAP 7 Performed By: #### L500.2500 #### [facility] [address] [place] [place], [address] LACTIC ACID Collected: 01/22/2018 Status: F Source: MELLOTT 1:50 PM [facility] REPOSITORY Order Comment: Yes/No query for Sepsis Lactate Rule Y TYPE CODE TESTS RESULT OUT OF RANGE REFERENCE UNITS LAB L503.6005 0.4-2.0 mmol/L Normal LACTIC ACID 0.7 Performed By: #### L503.6005 #### [facility] [address] [place] [place], [address] ABDOMEN/PELVIS WITH Observed: 01/22/2018 Status: F Source: MELLOTT CONTRAST 1:40 PM [facility] REPOSITORY [facility] Imaging Services [address] [place] [address] Abdomen/Pelvis WITH Contrast MR#: [id number] Acct: [id number] Name: HENRIQUE TURPIN Rep #: [id number] : 1970 F 47 From: Luisito Colon MD PCP: Care Physician, No Primary Status: REG ER Study: Abdomen/Pelvis WITH Contrast Date of Exam: 01/22/18 Exam# [id number] Ordering Dr: Vickie Stevenson DO STUDY: CT ABDOMEN AND PELVIS WITH CONTRAST REASON FOR EXAM: Female, 47 years old. Bloody stool. Abdominal pain. Recent bilateral knee replacement. RADIATION DOSAGE (If Supplied By Facility): CTDIvol = ( 15.68 ) mGy, DLP = ( 1068.98 ) mGycm TECHNIQUE: Transaxial images were obtained from the dome of the diaphragm to the symphysis pubis with oral contrast. 100 ml of Isovue 300 contrast was administered. Sagittal and coronal images were reconstructed. Individualized dose optimization techniques were used for this CT. COMPARISON: None. FINDINGS: The visualized lung bases are unremarkable. The visualized portions of the heart are within normal limits. Normal liver. Normal gallbladder and extrahepatic biliary system. Normal spleen. Normal pancreas. Normal bilateral adrenal glands. Normal right kidney. Normal left kidney. There is a small hiatal hernia. Normal small intestine. Mild diffuse thickening of the colonic wall. Colitis should be ruled out. There are multiple colonic diverticula consistent with diverticulosis. The appendix is visualized and appears normal. Normal abdominal aorta. Normal inferior vena cava. Normal retroperitoneum. Normal urinary bladder. Small benign-appearing bilateral inguinal lymph nodes. There is a small umbilical hernia containing fat. Normal osseous structures. CT/Abdomen/Pelvis WITH Contrast IMPRESSION: Findings suggestive of a colitis worse in the left hemicolon. Electronically Signed: Luisito Colon MD at 15:55 EDT Tel [phone], Service support , CC: No Primary Care Physician; Vickie Stevenson DO Filtering Machine Tender: Signed OBSOLETE Observed: 01/20/2018 Status: COMPLETED Source: BEGGS 12:00 AM [facility] OTHER [facility] REPOSITORY Refill (AGGYNBMG) HENRIQUE TURPIN ([id number]) 1970 F Date Time Provider Department 01/20/18 ANTONIO FLOWERS During your visit today, we recorded the following information about you: Trinity José CMA 01/21/2018 10:00 AM Signed Pharmacy faxed requesting the following refill. Patient's last appointment: with Antonio Flowers MD was 01/17/2017 Pending Prescriptions Disp Refills NUVARING 0.12 MG -0.015 MG/24 HR VAGINAL 1 ring 0 Sig: INSERT 1 RING VAGINALLY AND LEAVE IN PLACE FOR 3 WEEKS, THEN REMOVE FOR 1 WEEK GA: No/Patient needs an appointment before any more refills. Patient Phone numbers: [phone] (home) [phone] (work) Request is for script(s) to be escript to pharmacy. Trinity José, [facility] Allergies As of Date: 01/20/2018 (No Known Allergies) Date Reviewed: 01/17/2017 Reviewed by: Antonio Flowers - Fully Assessed Reason for Visit: Refill Request [94] Order(s):NUVARING 0.12-0.015 mg/24 hr vaginal ringINSERT 1 RING VAGINALLY AND LEAVE IN PLACE FOR 3 WEEKS, THEN REMOVE FOR 1 WEEKDisp: 1 EachRfl: 0 Prescriptions as of 01/20/2018 Sig: NUVARING 0.12 MG -0.015 MG/24* INSERT 1 RING VAGINALLY AND L* LEVOTHYROXINE ORAL Take 50 mcg by mouth once chastity* TRAMADOL ORAL Take 50 mg by mouth once kelli* Problem List As Of Date 01/20/2018 Noted Resolved Routine cervical smear [Z12.4] INVALID FOR* Encounter for screening mammogram for malignant*INVALID FOR* Encounter for initial prescription of vaginal r*INVALID FOR* Prescriptions ordered this encounter Disp Refills Start End NUVARING 0.12 MG -0.015 MG/24 HR VAG* 1 Ea* 0 01/21/2018 Sig: INSERT 1 RING VAGINALLY AND LEAVE IN PLACE FOR 3 WEEKS, THEN REMOVE FOR 1 WEEK Medications Discontinued During This Encounter Etonogestrel-Ethinyl Estradiol (NUVA* 1 Ea* 11 01/17/2017 01/21/2018 Route: VAGINAL Sig: Use 1 Each vaginally as directed. Insert vaginally and leave in place for 3 consecutive weeks, then remove for 1 week. Disc: Reason for discontinue is not on file. Encounter Status:Closed by ANTONIO FLOWERS MD on 01/21/18 CBC-COMPLETE BLOOD CNT Collected: 08/16/2017 Status: F Source: CHAITANYA NO DIFF 4:10 PM [facility] REPOSITORY TYPE CODE TESTS RESULT OUT OF RANGE REFERENCE UNITS LAB L100.1000 4.4-11.0 K/mm3 Normal WBC 8.4 LAB L100.1200 4.2-5.4 M/mm3 Low RBC 4.13 LAB L100.1300 12.0-15.0 g/dl Normal HGB 13.7 LAB L100.1400 37-47 % Normal HCT 40.7 LAB L100.1500 81-99 fL Normal MCV 98.5 LAB L100.1600 27.0-32.0 pg High MCH 33.2 LAB L100.1700 32-36 g/gl Normal MCHC 33.7 LAB L100.1810 11.6-14.6 % Normal RDW CV 12.3 LAB L100.1820 35.1-43.9 fl Normal RDW SD 43.7 LAB L100.1900 150-450 K/mm3 Normal PLT 299 LAB L100.2000 6.2-12.0 fl Normal MPV 11.2 Performed By: #### L100.0500 #### [facility] [address] [place], [address] BASIC METABOLIC Collected: 08/16/2017 Status: F Source: MELLOTT PROFILE (BMP) 4:10 PM [facility] REPOSITORY TYPE CODE TESTS RESULT OUT OF RANGE REFERENCE UNITS LAB L501.0100 74-106 mg/dL Normal GLU 84 Result Comment: Please note revised GLUCOSE reference range effective 2017. LAB L501.1000 7-18 mg/dL High BUN 24 LAB L501.1100 0.55-1.02 mg/dL Normal CREAT,SERUM 0.83 Result Comment: The validity of the calculated GFR AND GFRAA in patients over 70 years has not been determined. Clinical correlation is essential. LAB L501.1110 >60 mL/min Normal EST GFR 78 Result Comment: Non- GFR Calc LAB L501.1115 >60 mL/min Normal EST GFR - AA 95 Result Comment: GFR Calc LAB L501.1300 10-20 RATIO High BUN/CRE 28.8 LAB L501.2200 8.5-10.1 mg/dL CA Normal 8.9 LAB L501.5300 136-145 mmol/L NA Normal 139 LAB L501.5600 3.5-5.1 mmol/L K Normal 3.8 LAB L501.5900 98-107 mmol/L CL Normal 106 LAB L501.6100 21.0-32.0 mmol/L Normal CO2 26.0 LAB L501.6200 5-15 Normal GAP 7 Performed By: #### L500.2500 #### [facility] [address] [place], [address] ALLERGIES ALLERGIES DATE TYPE / CODE NAME / CODE REACTION SEVERITY SOURCE 01/22/2018 Drug No Known Unknown [facility] Allergy/416 Allergies/Q94481 Hospital 020319(SNOM 0388(RXNORM) Repository ED CT) Drug NO KNOWN [facility] Class/64807 ALLERGIES Other [place] 1003(SNOMED Repository CT) NG/[id number] NO KNOWN [place] [address] Repository ENCOUNTERS ENCOUNTERS ADMIT/DISCHARGE ACCOUNT NUMBER ADMITTING ENCOUNTER LOCATION SOURCE CLASS 07/11/2018 [id number] [facility] ding:LABSPEC Repository 05/30/2018 [id number] [facility] ding:LABSPEC Repository 05/28/2018 [id number] [facility] ding:MTLAB Repository 03/27/2018/03/27/20 [id number] Ambulatory [address] Other [place] Repository 03/27/2018/03/27/20 [id number] Ambulatory [address] MEDICAL Repository CENTERBuildi ng:GBMG 01/22/2018/01/24/[id number] ding:WY0Ciux Repository : PO603Ejb: 1 01/22/2018 [id number] [facility], Ambulatory BMSBuilding: [place] Ghasem [facility] Repository 01/22/2018 [id number] [facility], Ambulatory BMSBuilding: [place] Ghasem [facility] Repository 08/16/2017 [id number] [facility] ding:MTLAB Repository PAYERS PAYERS ENCOUNTER GUARANTOR PAYER SUBSCRIBER SOURCE 07/11/2018 HENRIQUE Primary HENRIQUE TURPIN[address] [place] [address] Insurance:MEDICAL BLAIRS MILLSDOB: [id number], Number: Repository [place] [id number]: [id number] Date:0474-77-08NR BOX () [address] [place] [phone]: 07/11/2018 Secondary NOT GIVENUNK Chaitanya Insurance:SELF PAY [facility] Number: Effective Repository Date:2018-07-11 05/30/2018 HENRIQUE Primary HENRIQUE [place] [address] Insurance:MEDICAL MURRAYDOB: [facility] [id number], Number: Repository [place] [address]Iqw: [id number] Date:7194-64-58VA BOX () [address] [place] [id number]: 05/30/2018 Secondary NOT GIVENUNK Chaitanya Insurance:SELF PAY [facility] Number: Effective Repository Date:2018-05-30 05/28/2018 HENRIQUE Primary [address]RIQUE [address] Insurance:MEDICAL MURRAYDOB: [facility] [id number], Number: Repository [place] [id number]: [id number] Date:6512-94-08UX BOX () [address] [place] [id number]: 05/28/2018 Secondary NOT GIVENUNK [place] Insurance:SELF PAY [facility] Number: Effective Repository Date:2018-05-28 03/27/2018 HENRIQUE D Primary Insurance:MMO HENRIQUE D [facility] MURRAYDOB: [facility] [place] Number: [id number] Repository [facility] [id number] [facility], Date: [place] [address]Btf: (FA) 01/22/2018 HENRIQUE D Primary HENRIQUE D [place] [id number] Insurance:MEDICAL MURRAYDOB: [facility] [id number] Number: Repository [place] [address]Wsb: [id number] Date:0946-60-15BQ BOX (HP) [address] [place] [id number]: 01/22/2018 Secondary NOT GIVENUNK [place] Insurance:SELF PAY [facility] Number: Effective Repository Date:2018-01-22 01/22/2018 HENRIQUE Echevarria Primary HENRIQUE Echevarria [place] [id number] Insurance:MEDICAL MURRAYDOB: Community [facility] [id number], Number: Repository [place] [id number]: [id number] Date:7599-82-39KV BOX () [address] [place] [phone]: 01/22/2018 Secondary NOT GIVENUNK Chaitanya Insurance:SELF PAY [facility] Number: Effective Repository Date:2018-01-22 01/22/2018 HENRIQUE Echevarria Primary [address]RIQUE [address] Insurance:MEDICAL MURRAYDOB: Community [facility] [id number] [facility], Number: Repository [place] [id number]: [id number] Date:9488-57-91QV BOX () [address] [place] [phone]: 01/22/2018 Secondary NOT GIVENUNK Chaitanya Insurance:SELF PAY [facility] Number: Effective Repository Date:2018-01-22 08/16/2017 AMANDA CASILLAS0 Primary AMANDA PAPIDOB: Chaitanya [address] Insurance:MEDICAL [id number] [place] [address]Csm: Number: Repository [id number] (HP) Date:0610-96-04FM [address] [place] [phone]: 08/16/2017 Secondary NOT GIVENUNK [place] Insurance:SELF PAY [facility] Number: Effective Repository Date:2017-08-16
== END ==
PROVIDERS: Family Provider Nurse Practitioner; PCP Nurse Practitioner; Referring Provider Nurse Practitioner; Visit Provider Nurse Practitioner
DX: E03.9 Hypothyroidism, unspecified (principal)
CPT/HCPCS: 84443

== ENCOUNTER → 2021-11-10 | Outpatient (CLI) | payer OTHER, SELFPAY ==
--- NOTE | 2021-11-10 15:25 | VDLE_ITS ---
Reason For Study: Pain Procedure LEFT This is a venous duplex using B-mode, color GSV is normal. flow and spectral Doppler. CFV is compressible, spontaneous, phasic, Exam performed in department. competent, and demonstrates normal A preliminary report was called and/or faxed augmentation. to [facility]. FV is compressible, spontaneous, phasic, competent and demonstrates normal augmentation. POP V is compressible, spontaneous, phasic, competent and demonstrates normal augmentation. T/P Trunk is compressible. PTV is compressible. LT PerV is compressible. VL/Venous Duplex US, Unilateral Interpretation Summary Deep veins of the left lower extremity are patent and compressible segmentally. There is no evidence of left lower extremity deep vein thrombosis. Valvular competence appears intac t within the proximal deep venous system on the left . The left great saphenous vein appears patent a nd compressible segmentally. Ordering Physician: Lopez Toscano Referring Physician: Allison Kulkarni Performed By: April Atwood RVT
== END | disposition home or self-care (01) ==
LOC: CVS 15:23
PROVIDERS: PCP Nurse Practitioner; Visit Provider Physician Assistant
DX: M79.662 Pain in left lower leg (principal)
CPT/HCPCS: 93971